=== PATIENT | male | born 1960 | race Caucasian/White ===

== ENCOUNTER 2017-11-15 23:57 | Inpatient (IN) | payer OTHER ==
[2017-11-16] MEDS: SOD CHLORIDE 0.9% 1,000 ML IV (00:40)
[2017-11-16] MEDS: METOCLOPRAMIDE 10 MG INJ IV (00:40)
[2017-11-16] MEDS: ASPIRIN 325 MG TAB PO (00:40)
[2017-11-16 00:57] LABS: ADD MAN DIFF? NO
[2017-11-16 01:05] LABS: BASOPHIL # 0.1 10^3/ul (0.0-0.1); BASOPHILS % 0.7 % (0.0-2.0); EOSINOPHILS # 0.7 10^3/ul (0.0-0.5); EOSINOPHILS % 7.8 % (0.0-7.0); HEMATOCRIT 19.5 % (42.0-52.0); LYMPHOCYTES % 23.5 % (15.0-51.0); MEAN CORPUSCULAR HEMOGLOBIN 40.7 pg (29.0-33.0); MEAN CORPUSCULAR HGB CONC 35.9 g/dl (32.0-37.0); MEAN CORPUSCULAR VOLUME 113.4 fl (82.0-101.0); MEAN PLATELET VOLUME 10.4 fl (7.4-10.4); MONOCYTES % 12.2 % (0.0-11.0); NEUTROPHIL # 4.7 10^3/ul (1.6-7.5); NEUTROPHILS % 55.4 % (39.0-77.0); PLATELET COUNT 228 10^3/UL (140-415); RED BLOOD COUNT 1.72 10^6/ul (4.70-6.10); RED CELL DISTRIBUTION WIDTH 15.8 % (11.5-14.5)
[2017-11-16 01:05] LABS: WHITE BLOOD COUNT 8.4 10^3/ul (4.8-10.8)
[2017-11-16 01:23] LABS: LACTIC ACID 1.3 mmol/L (0.5-2.0)
[2017-11-16 01:25] LABS: ALANINE AMINOTRANSFERASE 43 IU/L (13-69); ALKALINE PHOSPHATASE 87 IU/L (42-121); ANION GAP 16 (8-16); ASPARTATE AMINO TRANSFERASE 23 IU/L (15-46); BILIRUBIN,INDIRECT 0.3 mg/dl (0-1.1); BILIRUBIN,TOTAL 0.3 mg/dl (0.2-1.3); BLOOD UREA NITROGEN 13 mg/dl (7-20); CALCIUM 9.4 mg/dl (8.4-10.2); CARBON DIOXIDE 26 mmol/L (21-31); CHLORIDE 102 mmol/L (97-110); CREATININE 0.76 mg/dl (0.61-1.24); GLUCOSE 128 mg/dl (70-220); POTASSIUM 3.8 mmol/L (3.5-5.1); SODIUM 140 mmol/L (135-144); TOTAL PROTEIN 6.4 g/dl (6.1-8.1)
[2017-11-16 01:35] LABS: B-TYPE NATRIURETIC PEPTIDE 66 PG/ML (0-125)
[2017-11-16 01:38] LABS: TROPONIN-I < 0.012 ng/ml (0.00-0.12)
[2017-11-16 03:47] LABS: IRON 221 ug/dl (35-150)
[2017-11-16 03:56] LABS: LACTIC ACID 0.9 mmol/L (0.5-2.0)
[2017-11-16 03:57] LABS: % IRON SATURATION 92 % SAT (22-52); TOTAL IRON BINDING CAPACITY 241 ug/dl (241-421)
[2017-11-16 04:00] LABS: RETICULOCYTE COUNT # 0.006 X10^6 (0.020-0.110); RETICULOCYTE COUNT % 0.4 % (0.5-1.5)
[2017-11-16 04:00] LABS: RETICULOCYTE RBC 1.69
[2017-11-16] MEDS: HYDROCODONE/APAP (5/325) TAB PO (05:30)
[2017-11-16 05:32] LABS: IMMEDIATE SPIN CROSSMATCH 1 2
[2017-11-16] MEDS: PANTOPRAZOLE (EC) 40 MG TAB PO ×4 (06:46→06:51)
[2017-11-16 08:08] LABS: CREATINE KINASE 57 IU/L (23-200)
[2017-11-16 08:21] LABS: CK INDEX 0.9
[2017-11-16 08:36] LABS: CK-MB 0.51 ng/ml (0.0-2.4); TROPONIN-I < 0.012 ng/ml (0.00-0.12)
[2017-11-16 13:24] LABS: HEMATOCRIT 25.5 % (42.0-52.0)
[2017-11-16 13:47] LABS: CREATINE KINASE 55 IU/L (23-200)
[2017-11-16 13:57] LABS: CK INDEX 0.6
[2017-11-16 14:03] LABS: CK-MB 0.33 ng/ml (0.0-2.4); TROPONIN-I < 0.012 ng/ml (0.00-0.12)
[2017-11-16] MEDS ORDERED: PHENOL 1.4% SOLN 180 ML BTL MT (19:00)
[2017-11-16] MEDS: GUAIFENESIN/DM 5ML CUP PO (20:36)
[2017-11-17 00:23] LABS: OCCULT BLOOD STOOL NEGATIVE (NEGATIVE)
[2017-11-17] MEDS: GUAIFENESIN/DM 5ML CUP PO ×3 (00:42→17:08)
[2017-11-17] MEDS: PANTOPRAZOLE (EC) 40 MG TAB PO (06:09)
[2017-11-17 07:33] LABS: ADD MAN DIFF? NO
[2017-11-17 07:36] LABS: WHITE BLOOD COUNT 7.2 10^3/ul (4.8-10.8)
[2017-11-17 07:36] LABS: BASOPHIL # 0.1 10^3/ul (0.0-0.1); BASOPHILS % 0.8 % (0.0-2.0); EOSINOPHILS # 0.4 10^3/ul (0.0-0.5); EOSINOPHILS % 5.8 % (0.0-7.0); HEMATOCRIT 24.1 % (42.0-52.0); HEMOGLOBIN 8.5 g/dl (14.0-18.0); LYMPHOCYTES # 1.6 10^3/ul (0.8-2.9); LYMPHOCYTES % 21.4 % (15.0-51.0); MEAN CORPUSCULAR HEMOGLOBIN 37.4 pg (29.0-33.0); MEAN CORPUSCULAR HGB CONC 35.3 g/dl (32.0-37.0); MEAN CORPUSCULAR VOLUME 106.2 fl (82.0-101.0); MEAN PLATELET VOLUME 10.6 fl (7.4-10.4); MONOCYTE # 0.9 10^3/ul (0.3-0.9); MONOCYTES % 12.4 % (0.0-11.0); NEUTROPHIL # 4.3 10^3/ul (1.6-7.5); NEUTROPHILS % 59.2 % (39.0-77.0); PLATELET COUNT 206 10^3/UL (140-415); RED BLOOD COUNT 2.27 10^6/ul (4.70-6.10); RED CELL DISTRIBUTION WIDTH 20.3 % (11.5-14.5)
[2017-11-17 08:00] LABS: ALANINE AMINOTRANSFERASE 32 IU/L (13-69); ALBUMIN 3.6 g/dl (3.3-4.9); ALBUMIN/GLOBULIN RATIO 1.56; ALKALINE PHOSPHATASE 69 IU/L (42-121); ANION GAP 15 (8-16); ASPARTATE AMINO TRANSFERASE 17 IU/L (15-46); BILIRUBIN,INDIRECT 0.5 mg/dl (0-1.1); BILIRUBIN,TOTAL 0.5 mg/dl (0.2-1.3); BLOOD UREA NITROGEN 12 mg/dl (7-20); CALCIUM 9.1 mg/dl (8.4-10.2); CARBON DIOXIDE 25 mmol/L (21-31); CHLORIDE 107 mmol/L (97-110); CREATININE 0.66 mg/dl (0.61-1.24); GLUCOSE 103 mg/dl (70-220); SODIUM 143 mmol/L (135-144); TOTAL PROTEIN 5.9 g/dl (6.1-8.1)
[2017-11-18] MEDS: PANTOPRAZOLE (EC) 40 MG TAB PO (05:14)
[2017-11-18 07:59] LABS: ADD MAN DIFF? NO
[2017-11-18 08:02] LABS: BASOPHILS % 0.5 % (0.0-2.0); EOSINOPHILS # 0.5 10^3/ul (0.0-0.5); EOSINOPHILS % 6.3 % (0.0-7.0); HEMOGLOBIN 8.7 g/dl (14.0-18.0); LYMPHOCYTES # 1.8 10^3/ul (0.8-2.9); LYMPHOCYTES % 22.6 % (15.0-51.0); MEAN CORPUSCULAR HEMOGLOBIN 36.9 pg (29.0-33.0); MEAN CORPUSCULAR HGB CONC 34.8 g/dl (32.0-37.0); MEAN CORPUSCULAR VOLUME 105.9 fl (82.0-101.0); MEAN PLATELET VOLUME 10.4 fl (7.4-10.4); MONOCYTES % 12.4 % (0.0-11.0); NEUTROPHIL # 4.6 10^3/ul (1.6-7.5); NEUTROPHILS % 57.8 % (39.0-77.0); PLATELET COUNT 211 10^3/UL (140-415); RED BLOOD COUNT 2.36 10^6/ul (4.70-6.10); RED CELL DISTRIBUTION WIDTH 19.7 % (11.5-14.5)
[2017-11-18 09:45] LABS: INR 1.09; PARTIAL THROMBOPLASTIN TIME 38.5 Sec (25.0-35.0); PROTIME 14.2 Sec (11.9-14.9); PT RATIO 1.1
[2017-11-18] MEDS: LIDOCAINE 1% (MDV) 10 ML INJ (13:25)
[2017-11-18] MEDS: MIDAZOLAM 1 MG/ML 2 ML INJ (13:27)
[2017-11-18] MEDS: FENTAnyl 50 MCG/ML VIAL (13:30)
[2017-11-18] MEDS: SOD CHLORIDE 0.9% 500 ML (13:30)
[2017-11-18 16:37] LABS: TRANSFERRIN 142 mg/dL (188-341)
[2017-11-18] MEDS: ALBUTEROL/IPRATROPIUM (NEB) 3 ML AMP HHN ×2 (17:15→22:23)
[2017-11-18] MEDS: DEXTROSE 5%-0.45% NACL 1,000 ML IV ×2 (22:19)
[2017-11-19] MEDS: PANTOPRAZOLE (EC) 40 MG TAB PO (05:58)
[2017-11-19 06:11] LABS: ADD MAN DIFF? NO
[2017-11-19 06:15] LABS: BASOPHILS % 0.5 % (0.0-2.0); EOSINOPHILS # 0.5 10^3/ul (0.0-0.5); EOSINOPHILS % 5.9 % (0.0-7.0); HEMATOCRIT 23.5 % (42.0-52.0); HEMOGLOBIN 8.4 g/dl (14.0-18.0); LYMPHOCYTES # 1.9 10^3/ul (0.8-2.9); LYMPHOCYTES % 24.3 % (15.0-51.0); MEAN CORPUSCULAR HEMOGLOBIN 38.2 pg (29.0-33.0); MEAN CORPUSCULAR HGB CONC 35.7 g/dl (32.0-37.0); MEAN CORPUSCULAR VOLUME 106.8 fl (82.0-101.0); MEAN PLATELET VOLUME 10.5 fl (7.4-10.4); MONOCYTE # 1.1 10^3/ul (0.3-0.9); MONOCYTES % 13.7 % (0.0-11.0); NEUTROPHIL # 4.2 10^3/ul (1.6-7.5); NEUTROPHILS % 55.2 % (39.0-77.0); PLATELET COUNT 211 10^3/UL (140-415); RED CELL DISTRIBUTION WIDTH 18.9 % (11.5-14.5)
[2017-11-19 06:15] LABS: WHITE BLOOD COUNT 7.7 10^3/ul (4.8-10.8)
[2017-11-19 07:12] LABS: THYROID STIMULATING HORMONE 0.786 MIU/L (0.465-4.680)
[2017-11-19 07:46] LABS: FOLATE 13.9 ng/ml (2.8-20.0)
[2017-11-20] MEDS: PANTOPRAZOLE (EC) 40 MG TAB PO (05:27)
[2017-11-20 06:16] LABS: ADD MAN DIFF? NO
[2017-11-20 06:29] LABS: WHITE BLOOD COUNT 8.9 10^3/ul (4.8-10.8)
[2017-11-20 06:29] LABS: BASOPHIL # 0.1 10^3/ul (0.0-0.1); BASOPHILS % 0.7 % (0.0-2.0); EOSINOPHILS # 0.7 10^3/ul (0.0-0.5); EOSINOPHILS % 7.3 % (0.0-7.0); HEMOGLOBIN 8.3 g/dl (14.0-18.0); LYMPHOCYTES # 1.8 10^3/ul (0.8-2.9); LYMPHOCYTES % 20.5 % (15.0-51.0); MEAN CORPUSCULAR HEMOGLOBIN 36.6 pg (29.0-33.0); MEAN CORPUSCULAR HGB CONC 34.6 g/dl (32.0-37.0); MEAN CORPUSCULAR VOLUME 105.7 fl (82.0-101.0); MEAN PLATELET VOLUME 10.3 fl (7.4-10.4); MONOCYTE # 1.1 10^3/ul (0.3-0.9); MONOCYTES % 12.3 % (0.0-11.0); NEUTROPHIL # 5.2 10^3/ul (1.6-7.5); PLATELET COUNT 221 10^3/UL (140-415); RED BLOOD COUNT 2.27 10^6/ul (4.70-6.10); RED CELL DISTRIBUTION WIDTH 18.6 % (11.5-14.5)
[2017-11-20 06:56] LABS: INR 1.09; PROTIME 14.2 Sec (11.9-14.9); PT RATIO 1.1
[2017-11-20 06:57] LABS: PARTIAL THROMBOPLASTIN TIME 37.9 Sec (25.0-35.0)
[2017-11-20 07:18] LABS: ANION GAP 15 (8-16); BLOOD UREA NITROGEN 14 mg/dl (7-20); CALCIUM 9.2 mg/dl (8.4-10.2); CARBON DIOXIDE 28 mmol/L (21-31); CHLORIDE 104 mmol/L (97-110); CREATININE 0.72 mg/dl (0.61-1.24); GLUCOSE 105 mg/dl (70-220); POTASSIUM 4.5 mmol/L (3.5-5.1); SODIUM 142 mmol/L (135-144)
[2017-11-20] MEDS: MIDAZOLAM 1 MG/ML 2 ML INJ (08:54)
[2017-11-20] MEDS: LIDOCAINE 2% (SDV) 5 ML INJ (08:54)
[2017-11-20] MEDS: PROPOFOL 20 ML (08:54)
[2017-11-20] MEDS: predniSONE 20 MG TAB PO (11:23)
[2017-11-20 12:16] LABS: HAPTOGLOBIN 199 mg/dL (43-212); HAPTOGLOBIN 242 mg/dL (43-212)
[2017-11-20] MEDS: NYSTATIN SUSP 5 ML CUP PO ×3 (13:36→20:34)
[2017-11-21] MEDS: PANTOPRAZOLE (EC) 40 MG TAB PO (06:00)
[2017-11-21 07:32] LABS: HEMATOCRIT 22.9 % (42.0-52.0); HEMOGLOBIN 7.9 g/dl (14.0-18.0)
[2017-11-21] MEDS: NYSTATIN SUSP 5 ML CUP PO ×4 (08:46→20:46)
[2017-11-21] MEDS: predniSONE 20 MG TAB PO (08:46)
[2017-11-21] MEDS: GUAIFENESIN/DM 5ML CUP PO ×2 (16:20→20:48)
[2017-11-21] MEDS: FOLIC ACID 1 MG TAB PO (16:21)
[2017-11-21] MEDS: CYANOCOBALAMIN 1000 MCG INJ IM (16:23)
[2017-11-22] MEDS: PANTOPRAZOLE (EC) 40 MG TAB PO (05:46)
[2017-11-22 06:19] LABS: ADD MAN DIFF? NO
[2017-11-22 06:34] LABS: BASOPHILS % 0.3 % (0.0-2.0); EOSINOPHILS # 0.1 10^3/ul (0.0-0.5); EOSINOPHILS % 0.8 % (0.0-7.0); HEMATOCRIT 21.7 % (42.0-52.0); HEMOGLOBIN 7.5 g/dl (14.0-18.0); LYMPHOCYTES # 1.7 10^3/ul (0.8-2.9); LYMPHOCYTES % 18.6 % (15.0-51.0); MEAN CORPUSCULAR HEMOGLOBIN 36.6 pg (29.0-33.0); MEAN CORPUSCULAR HGB CONC 34.6 g/dl (32.0-37.0); MEAN CORPUSCULAR VOLUME 105.9 fl (82.0-101.0); MEAN PLATELET VOLUME 10.8 fl (7.4-10.4); MONOCYTES % 10.8 % (0.0-11.0); NEUTROPHIL # 6.3 10^3/ul (1.6-7.5); PLATELET COUNT 230 10^3/UL (140-415); RED BLOOD COUNT 2.05 10^6/ul (4.70-6.10); RED CELL DISTRIBUTION WIDTH 18.4 % (11.5-14.5)
[2017-11-22 06:34] LABS: WHITE BLOOD COUNT 9.2 10^3/ul (4.8-10.8)
[2017-11-22] MEDS: GUAIFENESIN/DM 5ML CUP PO ×4 (08:53→21:02)
[2017-11-22] MEDS: FOLIC ACID 1 MG TAB PO (08:53)
[2017-11-22] MEDS: NYSTATIN SUSP 5 ML CUP PO ×4 (08:54→21:02)
[2017-11-22] MEDS: predniSONE 20 MG TAB PO (08:54)
[2017-11-22] MEDS: ACETAMINOPHEN 325 MG TAB PO (21:02)
[2017-11-22] MEDS: DIPHENHYDRAMINE 50 MG INJ IV (21:03)
[2017-11-22 21:27] LABS: IMMEDIATE SPIN CROSSMATCH 1 1
[2017-11-23] MEDS: PANTOPRAZOLE (EC) 40 MG TAB PO (05:58)
[2017-11-23 06:25] LABS: ADD MAN DIFF? NO
[2017-11-23 06:33] LABS: BASOPHILS % 0.2 % (0.0-2.0); EOSINOPHILS # 0.1 10^3/ul (0.0-0.5); EOSINOPHILS % 0.7 % (0.0-7.0); HEMATOCRIT 23.9 % (42.0-52.0); HEMOGLOBIN 8.3 g/dl (14.0-18.0); LYMPHOCYTES # 1.6 10^3/ul (0.8-2.9); LYMPHOCYTES % 19.2 % (15.0-51.0); MEAN CORPUSCULAR HEMOGLOBIN 35.8 pg (29.0-33.0); MEAN CORPUSCULAR HGB CONC 34.7 g/dl (32.0-37.0); MEAN PLATELET VOLUME 10.6 fl (7.4-10.4); MONOCYTES % 12.2 % (0.0-11.0); NEUTROPHIL # 5.5 10^3/ul (1.6-7.5); NEUTROPHILS % 67.3 % (39.0-77.0); PLATELET COUNT 237 10^3/UL (140-415); RED BLOOD COUNT 2.32 10^6/ul (4.70-6.10); RED CELL DISTRIBUTION WIDTH 19.6 % (11.5-14.5)
[2017-11-23 06:33] LABS: WHITE BLOOD COUNT 8.1 10^3/ul (4.8-10.8)
[2017-11-23] MEDS: FOLIC ACID 1 MG TAB PO (09:37)
[2017-11-23] MEDS: predniSONE 20 MG TAB PO (09:37)
[2017-11-23] MEDS: NYSTATIN SUSP 5 ML CUP PO ×4 (09:38→20:59)
[2017-11-23] MEDS: GUAIFENESIN/DM 5ML CUP PO ×3 (09:43→23:14)
[2017-11-23] MEDS: ACETAMINOPHEN 325 MG TAB PO (18:17)
[2017-11-24 05:43] LABS: ADD MAN DIFF? NO
[2017-11-24 05:46] LABS: WHITE BLOOD COUNT 8.3 10^3/ul (4.8-10.8)
[2017-11-24 05:46] LABS: BASOPHILS % 0.2 % (0.0-2.0); EOSINOPHILS % 0.5 % (0.0-7.0); HEMATOCRIT 24.1 % (42.0-52.0); HEMOGLOBIN 8.4 g/dl (14.0-18.0); LYMPHOCYTES # 1.5 10^3/ul (0.8-2.9); LYMPHOCYTES % 18.3 % (15.0-51.0); MEAN CORPUSCULAR HEMOGLOBIN 35.4 pg (29.0-33.0); MEAN CORPUSCULAR HGB CONC 34.9 g/dl (32.0-37.0); MEAN CORPUSCULAR VOLUME 101.7 fl (82.0-101.0); MEAN PLATELET VOLUME 10.5 fl (7.4-10.4); MONOCYTES % 12.2 % (0.0-11.0); NEUTROPHIL # 5.6 10^3/ul (1.6-7.5); NEUTROPHILS % 68.3 % (39.0-77.0); PLATELET COUNT 234 10^3/UL (140-415); RED BLOOD COUNT 2.37 10^6/ul (4.70-6.10); RED CELL DISTRIBUTION WIDTH 18.6 % (11.5-14.5)
[2017-11-24] MEDS: PANTOPRAZOLE (EC) 40 MG TAB PO (06:23)
[2017-11-24] MEDS: FOLIC ACID 1 MG TAB PO (08:14)
[2017-11-24] MEDS: predniSONE 20 MG TAB PO (08:14)
[2017-11-24] MEDS: NYSTATIN SUSP 5 ML CUP PO ×4 (08:15→20:11)
[2017-11-24] MEDS: GUAIFENESIN/DM 5ML CUP PO ×3 (13:39→22:20)
[2017-11-24 15:30] LABS: RETICULOCYTE COUNT # 0.005 X10^6 (0.020-0.110); RETICULOCYTE COUNT % 0.2 % (0.5-1.5)
[2017-11-24 15:30] LABS: RETICULOCYTE RBC 2.35
[2017-11-24] MEDS: ACETAMINOPHEN 325 MG TAB PO (21:24)
[2017-11-25 05:51] LABS: ADD MAN DIFF? NO
[2017-11-25 05:56] LABS: WHITE BLOOD COUNT 8.3 10^3/ul (4.8-10.8)
[2017-11-25 05:56] LABS: BASOPHILS % 0.2 % (0.0-2.0); EOSINOPHILS # 0.1 10^3/ul (0.0-0.5); EOSINOPHILS % 0.8 % (0.0-7.0); HEMATOCRIT 22.6 % (42.0-52.0); LYMPHOCYTES # 1.5 10^3/ul (0.8-2.9); LYMPHOCYTES % 17.7 % (15.0-51.0); MEAN CORPUSCULAR HEMOGLOBIN 35.9 pg (29.0-33.0); MEAN CORPUSCULAR HGB CONC 35.4 g/dl (32.0-37.0); MEAN CORPUSCULAR VOLUME 101.3 fl (82.0-101.0); MEAN PLATELET VOLUME 10.8 fl (7.4-10.4); MONOCYTE # 0.9 10^3/ul (0.3-0.9); MONOCYTES % 11.1 % (0.0-11.0); NEUTROPHIL # 5.8 10^3/ul (1.6-7.5); NEUTROPHILS % 69.7 % (39.0-77.0); PLATELET COUNT 212 10^3/UL (140-415); RED BLOOD COUNT 2.23 10^6/ul (4.70-6.10); RED CELL DISTRIBUTION WIDTH 18.5 % (11.5-14.5)
[2017-11-25] MEDS: PANTOPRAZOLE (EC) 40 MG TAB PO (06:10)
[2017-11-25] MEDS: NYSTATIN SUSP 5 ML CUP PO ×2 (08:01→12:04)
[2017-11-25] MEDS: FOLIC ACID 1 MG TAB PO (08:01)
[2017-11-25] MEDS: predniSONE 20 MG TAB PO (08:01)
[2017-11-25] MEDS: GUAIFENESIN/DM 5ML CUP PO (09:07)
== END 2017-11-25 15:45 | disposition home or self-care (01) | DRG 812 ==
LOC: E/R 23:57 → MS2 11-21 17:55 → MS4 11-16 03:35
PROVIDERS: Internal Medicine Nephrology
PROC: 0DB68ZX Excision of Stomach, Via Natural or Artificial Opening Endoscopic, Diagnostic (ICD-10-PCS; principal; 2017-11-20 08:15)
PROC: 30233N1 Transfusion of Nonautologous Red Blood Cells into Peripheral Vein, Percutaneous Approach (ICD-10-PCS; 2017-11-20 08:15)
PROC: 07DR3ZX Extraction of Iliac Bone Marrow, Percutaneous Approach, Diagnostic (ICD-10-PCS; 2017-11-20 08:15)
DX: D62 Acute posthemorrhagic anemia (principal); B37.81 Candidal esophagitis; D53.9 Nutritional anemia, unspecified; D61.01 Constitutional (pure) red blood cell aplasia; K22.2 Esophageal obstruction; K29.70 Gastritis, unspecified, without bleeding; K29.80 Duodenitis without bleeding; Z87.891 Personal history of nicotine dependence; R07.9 Chest pain, unspecified; R51 Headache
CPT/HCPCS: 36415; 36430; 71045; 71250; 74176; 77012; 80048; 80053; 80076; 82270; 82550; 82553; 82607; 82728; 82746; 82962; 83010; 83540; 83605; 83880; 84443; 84466; 84484; 85014; 85018; 85025; 85045; 85610; 85730; 86644; 86850; 86880; 86900; 86901; 86920; 87040; 88305; 88313; 93005; 94640; 94664; 96374; 99285-25

== ENCOUNTER 2017-12-10 09:00 | Inpatient (IN) | payer OTHER ==
[2017-12-10 09:23] LABS: ADD MAN DIFF? NO
[2017-12-10] MEDS: SOD CHLORIDE 0.9% 1,000 ML IV ×2 (09:29→18:24)
[2017-12-10 09:33] LABS: ABNORMAL IP MESSAGE 1; BASOPHILS % 0.2 % (0.0-2.0); EOSINOPHILS % 0.2 % (0.0-7.0); HEMATOCRIT 20.1 % (42.0-52.0); LYMPHOCYTES # 0.5 10^3/ul (0.8-2.9); LYMPHOCYTES % 7.8 % (15.0-51.0); MEAN CORPUSCULAR HEMOGLOBIN 34.3 pg (29.0-33.0); MEAN CORPUSCULAR HGB CONC 33.8 g/dl (32.0-37.0); MEAN CORPUSCULAR VOLUME 101.5 fl (82.0-101.0); MEAN PLATELET VOLUME 10.5 fl (7.4-10.4); MONOCYTE # 0.5 10^3/ul (0.3-0.9); MONOCYTES % 7.2 % (0.0-11.0); NEUTROPHIL # 5.4 10^3/ul (1.6-7.5); NEUTROPHILS % 84.1 % (39.0-77.0); PLATELET COUNT 156 10^3/UL (140-415); RED BLOOD COUNT 1.98 10^6/ul (4.70-6.10)
[2017-12-10 09:33] LABS: WHITE BLOOD COUNT 6.4 10^3/ul (4.8-10.8)
[2017-12-10 09:45] LABS: HEMOGLOBIN 6.8 g/dl (14.0-18.0)
[2017-12-10 09:50] LABS: ALANINE AMINOTRANSFERASE 24 IU/L (13-69); ALBUMIN 3.6 g/dl (3.3-4.9); ALKALINE PHOSPHATASE 64 IU/L (42-121); ANION GAP 14 (8-16); ASPARTATE AMINO TRANSFERASE 14 IU/L (15-46); BILIRUBIN,INDIRECT 0.8 mg/dl (0-1.1); BILIRUBIN,TOTAL 0.8 mg/dl (0.2-1.3); BLOOD UREA NITROGEN 19 mg/dl (7-20); CALCIUM 8.7 mg/dl (8.4-10.2); CARBON DIOXIDE 25 mmol/L (21-31); CHLORIDE 102 mmol/L (97-110); CREATININE 0.72 mg/dl (0.61-1.24); GLUCOSE 98 mg/dl (70-220); POTASSIUM 4.2 mmol/L (3.5-5.1); SODIUM 137 mmol/L (135-144)
[2017-12-10 10:01] LABS: TROPONIN-I < 0.012 ng/ml (0.00-0.12)
[2017-12-10 10:05] LABS: INR 1.09; PROTIME 14.3 Sec (11.9-14.9); PT RATIO 1.1
[2017-12-10 10:06] LABS: PARTIAL THROMBOPLASTIN TIME 33.9 Sec (25.0-35.0)
[2017-12-10] MEDS: ONDANSETRON 4 MG INJ IV (10:32)
[2017-12-10] MEDS: HYDROmorphONE 1 MG/5 ML IV SYRINGE IV (10:33)
[2017-12-10] MEDS ORDERED: ONDANSETRON 4 MG INJ IV ×2 (11:00→16:00)
[2017-12-10 12:41] LABS: IMMEDIATE SPIN CROSSMATCH 1 2
[2017-12-10] MEDS: ACETAMINOPHEN 325 MG TAB PO (15:17)
[2017-12-10] MEDS ORDERED: DOCUSATE SODIUM 100 MG CAP PO (16:00)
[2017-12-10] MEDS ORDERED: ZOLPIDEM 5 MG TAB PO (16:00)
[2017-12-10] MEDS ORDERED: NACL 0.9% 3 ML SYG IV (16:00)
[2017-12-10] MEDS ORDERED: HYDROCODONE/APAP (5/325) TAB PO (16:00)
[2017-12-10] MEDS ORDERED: morphine LIQ (10 MG/5 ML) CUP PO (16:00)
[2017-12-10] MEDS ORDERED: ACETAMINOPHEN 325 MG TAB PO (16:00)
[2017-12-10] MEDS: CEFTRIAXONE 1 GM/50 ML (PMX) 50 ML IVPB (18:24)
[2017-12-10] MEDS: predniSONE 20 MG TAB PO (18:25)
[2017-12-10 19:12] LABS: HEMATOCRIT 23.3 % (42.0-52.0); HEMOGLOBIN 7.9 g/dl (14.0-18.0)
[2017-12-10] MEDS: CALCIUM/VITAMIN D (500/200) TAB PO (21:24)
[2017-12-10] MEDS: CYCLOSPORINE MICROEMULS 100 MG CAP PO (21:24)
[2017-12-11 03:12] LABS: ADD UMIC YES; UR ASCORBIC ACID NEGATIVE (NEGATIVE); UR BACTERIA FEW /HPF (NONE SEEN); UR BILIRUBIN (Dip) NEGATIVE (NEGATIVE); UR BLOOD (Dip) 1+ mg/dL (NEGATIVE); UR CLARITY CLEAR (CLEAR); UR COLOR YELLOW (YELLOW); UR GLUCOSE (Dip) NEGATIVE (NEGATIVE); UR KETONES (Dip) NEGATIVE (NEGATIVE); UR LEUKOCYTE ESTERASE (Dip) NEGATIVE Leu/ul (NEGATIVE); UR NITRITE (Dip) NEGATIVE (NEGATIVE); UR RBC 0 /HPF (0-5); UR SPECIFIC GRAVITY (Dip) 1.012 (1.003-1.030); UR TOTAL PROTEIN (Dip) NEGATIVE (NEGATIVE); UR UROBILINOGEN (Dip) NEGATIVE (NEGATIVE); UR WBC 1 /HPF (0-5)
[2017-12-11] MEDS: PANTOPRAZOLE 40 MG INJ IV (05:33)
[2017-12-11 07:43] LABS: ADD MAN DIFF? NO
[2017-12-11 07:47] LABS: BASOPHILS % 0.2 % (0.0-2.0); EOSINOPHILS % 0.2 % (0.0-7.0); HEMATOCRIT 24.9 % (42.0-52.0); HEMOGLOBIN 8.6 g/dl (14.0-18.0); LYMPHOCYTES # 0.7 10^3/ul (0.8-2.9); LYMPHOCYTES % 12.5 % (15.0-51.0); MEAN CORPUSCULAR HEMOGLOBIN 33.2 pg (29.0-33.0); MEAN CORPUSCULAR HGB CONC 34.5 g/dl (32.0-37.0); MEAN CORPUSCULAR VOLUME 96.1 fl (82.0-101.0); MEAN PLATELET VOLUME 11.3 fl (7.4-10.4); MONOCYTE # 0.3 10^3/ul (0.3-0.9); MONOCYTES % 6.2 % (0.0-11.0); NEUTROPHIL # 4.2 10^3/ul (1.6-7.5); NEUTROPHILS % 80.5 % (39.0-77.0); PLATELET COUNT 138 10^3/UL (140-415); RED BLOOD COUNT 2.59 10^6/ul (4.70-6.10); RED CELL DISTRIBUTION WIDTH 19.4 % (11.5-14.5)
[2017-12-11 07:47] LABS: WHITE BLOOD COUNT 5.2 10^3/ul (4.8-10.8)
[2017-12-11 08:25] LABS: ANION GAP 14 (8-16); BLOOD UREA NITROGEN 15 mg/dl (7-20); CARBON DIOXIDE 25 mmol/L (21-31); CHLORIDE 104 mmol/L (97-110); CREATININE 0.65 mg/dl (0.61-1.24); GLUCOSE 122 mg/dl (70-220); PHOSPHORUS 4.2 mg/dl (2.5-4.9); POTASSIUM 4.8 mmol/L (3.5-5.1); SODIUM 138 mmol/L (135-144)
[2017-12-11] MEDS: CYCLOSPORINE MICROEMULS 100 MG CAP PO (09:10)
[2017-12-11] MEDS: CALCIUM/VITAMIN D (500/200) TAB PO (09:11)
[2017-12-11] MEDS: FOLIC ACID 1 MG TAB PO (09:13)
[2017-12-11] MEDS: SOD CHLORIDE 0.9% 1,000 ML IV (15:19)
[2017-12-11] MEDS: CEFTRIAXONE 1 GM/50 ML (PMX) 50 ML IVPB (15:22)
[2017-12-11 16:36] LABS: OCCULT BLOOD STOOL NEGATIVE (NEGATIVE)
== END 2017-12-11 18:53 | disposition home or self-care (01) | DRG 810 ==
LOC: MS4 15:26 → E/R 09:00 → MS4 10:41
PROVIDERS: Pediatrics
PROC: 30233N1 Transfusion of Nonautologous Red Blood Cells into Peripheral Vein, Percutaneous Approach (ICD-10-PCS; principal; 2017-12-10)
DX: D61.01 Constitutional (pure) red blood cell aplasia (principal); D62 Acute posthemorrhagic anemia; K29.50 Unspecified chronic gastritis without bleeding; N40.0 Benign prostatic hyperplasia without lower urinary tract symptoms; Z86.718 Personal history of other venous thrombosis and embolism
CPT/HCPCS: 36415; 36430; 71045; 80048; 80053; 81001; 82270; 83735; 84100; 84484; 85014; 85018; 85025; 85610; 85730; 86850; 86900; 86901; 86920; 87040; 93005; 96374; 96375; 99285-25

== ENCOUNTER 2017-12-27 00:16 | Observation (INO) | payer OTHER ==
[2017-12-27 01:14] LABS: WHITE BLOOD COUNT 6.6 10^3/ul (4.8-10.8)
[2017-12-27 01:14] LABS: ABNORMAL IP MESSAGE 1; HEMATOCRIT 18.3 % (42.0-52.0); MEAN CORPUSCULAR HEMOGLOBIN 32.1 pg (29.0-33.0); MEAN CORPUSCULAR HGB CONC 33.9 g/dl (32.0-37.0); MEAN CORPUSCULAR VOLUME 94.8 fl (82.0-101.0); MEAN PLATELET VOLUME 11.1 fl (7.4-10.4); PLATELET COUNT 171 10^3/UL (140-415); POSITIVE DIFF @See below; RED BLOOD COUNT 1.93 10^6/ul (4.70-6.10); RED CELL DISTRIBUTION WIDTH 17.1 % (11.5-14.5)
[2017-12-27 01:27] LABS: ADD MAN DIFF? YES; HEMOGLOBIN 6.2 g/dl (14.0-18.0)
[2017-12-27 01:32] LABS: ALANINE AMINOTRANSFERASE 24 IU/L (13-69); ALBUMIN 3.4 g/dl (3.3-4.9); ALBUMIN/GLOBULIN RATIO 1.41; ALKALINE PHOSPHATASE 62 IU/L (42-121); ANION GAP 12 (8-16); ASPARTATE AMINO TRANSFERASE 15 IU/L (15-46); BILIRUBIN,INDIRECT 0.5 mg/dl (0-1.1); BILIRUBIN,TOTAL 0.5 mg/dl (0.2-1.3); BLOOD UREA NITROGEN 18 mg/dl (7-20); CALCIUM 9.3 mg/dl (8.4-10.2); CARBON DIOXIDE 28 mmol/L (21-31); CHLORIDE 105 mmol/L (97-110); CREATININE 0.86 mg/dl (0.61-1.24); GLUCOSE 134 mg/dl (70-220); POTASSIUM 4.5 mmol/L (3.5-5.1); SODIUM 140 mmol/L (135-144); TOTAL PROTEIN 5.8 g/dl (6.1-8.1)
[2017-12-27 01:34] LABS: INR 1.08; PARTIAL THROMBOPLASTIN TIME 31.2 Sec (25.0-35.0); PROTIME 14.1 Sec (11.9-14.9); PT RATIO 1.1
[2017-12-27 01:47] LABS: TROPONIN-I < 0.012 ng/ml (0.000-0.120)
[2017-12-27 02:27] LABS: ANISOCYTOSIS 2+ (0-0); BAND NEUTROPHILS #M 0.7 10^3/ul (0.0-0.6); BAND NEUTROPHILS % (M) 11 % (0-4); HYPOCHROMASIA 1+ (0-0); LYMPHOCYTES #M 1.1 10^3/ul (0.8-2.9); LYMPHOCYTES % (M) 17 % (15-51); MICROCYTOSIS 2+ (0-0); MONOCYTE #M 0.5 10^3/ul (0.3-0.9); MONOCYTES % (M) 8 % (0-11); MYELOCYTES % (M) 1 % (0-0); PLATELET ESTIMATE NORMAL; POLYCHROMASIA 3+ (0-0); SEG NEUT #M 4.2 10^3/ul (1.6-7.5); SEGMENTED NEUTROPHILS (M) % 63 % (39-77)
[2017-12-27 03:08] LABS: IMMEDIATE SPIN CROSSMATCH 1 2
[2017-12-27] MEDS ORDERED: ONDANSETRON 4 MG INJ IV (06:00)
[2017-12-27] MEDS: SOD CHLORIDE 0.9% 1,000 ML IV (06:00)
[2017-12-27] MEDS: PANTOPRAZOLE 40 MG INJ IV (06:14)
[2017-12-27] MEDS: CYCLOSPORINE MICROEMULS 100 MG CAP PO ×2 (08:54→20:48)
[2017-12-27] MEDS: predniSONE 50 MG TAB PO (08:54)
[2017-12-27] MEDS: FOLIC ACID 1 MG TAB PO (08:56)
[2017-12-27] MEDS: ACETAMINOPHEN 325 MG TAB PO ×2 (11:17→23:04)
[2017-12-27] MEDS: DIPHENHYDRAMINE 50 MG INJ IV (11:18)
[2017-12-27 11:29] LABS: ABNORMAL IP MESSAGE 1; HEMATOCRIT 24.7 % (42.0-52.0); HEMOGLOBIN 8.4 g/dl (14.0-18.0); MEAN CORPUSCULAR HEMOGLOBIN 31.6 pg (29.0-33.0); MEAN CORPUSCULAR VOLUME 92.9 fl (82.0-101.0); MEAN PLATELET VOLUME 10.4 fl (7.4-10.4); PLATELET COUNT 168 10^3/UL (140-415); POSITIVE DIFF @See below; RED BLOOD COUNT 2.66 10^6/ul (4.70-6.10); RED CELL DISTRIBUTION WIDTH 16.3 % (11.5-14.5)
[2017-12-27 11:29] LABS: WHITE BLOOD COUNT 11.3 10^3/ul (4.8-10.8)
[2017-12-27 11:30] LABS: ADD MAN DIFF? YES
[2017-12-27 11:54] LABS: ANISOCYTOSIS 1+ (0-0); BAND NEUTROPHILS #M 1.9 10^3/ul (0.0-0.6); BAND NEUTROPHILS % (M) 17 % (0-4); LYMPHOCYTES #M 0.5 10^3/ul (0.8-2.9); LYMPHOCYTES % (M) 5 % (15-51); MICROCYTOSIS 1+ (0-0); MONOCYTE #M 0.4 10^3/ul (0.3-0.9); MONOCYTES % (M) 4 % (0-11); PLATELET ESTIMATE NORMAL; SEG NEUT #M 8.6 10^3/ul (1.6-7.5); SEGMENTED NEUTROPHILS (M) % 74 % (39-77); SMUDGE%M 6 % (0-0)
[2017-12-27 17:13] LABS: OCCULT BLOOD STOOL NEGATIVE (NEGATIVE)
[2017-12-27] MEDS: PANTOPRAZOLE (EC) 40 MG TAB PO (18:20)
[2017-12-28 06:12] LABS: WHITE BLOOD COUNT 5.9 10^3/ul (4.8-10.8)
[2017-12-28 06:12] LABS: ABNORMAL IP MESSAGE 1; HEMATOCRIT 25.1 % (42.0-52.0); HEMOGLOBIN 8.3 g/dl (14.0-18.0); MEAN CORPUSCULAR HEMOGLOBIN 30.7 pg (29.0-33.0); MEAN CORPUSCULAR HGB CONC 33.1 g/dl (32.0-37.0); MEAN PLATELET VOLUME 10.8 fl (7.4-10.4); PLATELET COUNT 171 10^3/UL (140-415); POSITIVE DIFF @See below; RED CELL DISTRIBUTION WIDTH 16.6 % (11.5-14.5)
[2017-12-28 06:45] LABS: BLOOD UREA NITROGEN 17 mg/dl (7-20); CALCIUM 9.6 mg/dl (8.4-10.2); CARBON DIOXIDE 33 mmol/L (21-31); CHLORIDE 106 mmol/L (97-110); CREATININE 0.86 mg/dl (0.61-1.24); GLUCOSE 93 mg/dl (70-220); POTASSIUM 4.7 mmol/L (3.5-5.1)
[2017-12-28 06:52] LABS: ADD MAN DIFF? YES
[2017-12-28] MEDS: PANTOPRAZOLE (EC) 40 MG TAB PO ×2 (06:56→17:12)
[2017-12-28 07:07] LABS: ANION GAP 12 (8-16); SODIUM 146 mmol/L (135-144)
[2017-12-28] MEDS: ACETAMINOPHEN 325 MG TAB PO (08:06)
[2017-12-28] MEDS: predniSONE 50 MG TAB PO (08:06)
[2017-12-28] MEDS: FOLIC ACID 1 MG TAB PO (08:07)
[2017-12-28] MEDS: CYCLOSPORINE MICROEMULS 100 MG CAP PO ×2 (08:07→21:25)
[2017-12-28 09:54] LABS: ANISOCYTOSIS 1+ (0-0); BAND NEUTROPHILS #M 0.2 10^3/ul (0.0-0.6); BAND NEUTROPHILS % (M) 5 % (0-4); GIANT THROMBO% (M) 1 % (0-0); LYMPHOCYTES % (M) 17 % (15-51); MONOCYTE #M 0.4 10^3/ul (0.3-0.9); MONOCYTES % (M) 7 % (0-11); PLATELET ESTIMATE NORMAL; SEG NEUT #M 4.2 10^3/ul (1.6-7.5); SEGMENTED NEUTROPHILS (M) % 71 % (39-77); SMUDGE%M 4 % (0-0); STOMATOCYTES 1+ (0-0)
[2017-12-28] MEDS: CLOTRIMAZOLE 1% 30 GM CR TOP (21:25)
[2017-12-29] MEDS: ACETAMINOPHEN 325 MG TAB PO ×2 (01:23→09:41)
[2017-12-29] MEDS: PANTOPRAZOLE (EC) 40 MG TAB PO (05:28)
[2017-12-29 06:05] LABS: ABNORMAL IP MESSAGE 1; MEAN CORPUSCULAR HEMOGLOBIN 31.1 pg (29.0-33.0); MEAN CORPUSCULAR HGB CONC 33.3 g/dl (32.0-37.0); MEAN CORPUSCULAR VOLUME 93.4 fl (82.0-101.0); MEAN PLATELET VOLUME 10.4 fl (7.4-10.4); PLATELET COUNT 163 10^3/UL (140-415); POSITIVE DIFF @See below; RED BLOOD COUNT 2.57 10^6/ul (4.70-6.10); RED CELL DISTRIBUTION WIDTH 16.2 % (11.5-14.5)
[2017-12-29 06:05] LABS: WHITE BLOOD COUNT 7.3 10^3/ul (4.8-10.8)
[2017-12-29 06:15] LABS: ADD MAN DIFF? YES
[2017-12-29 06:30] LABS: ALANINE AMINOTRANSFERASE 28 IU/L (13-69); ALBUMIN 3.1 g/dl (3.3-4.9); ALBUMIN/GLOBULIN RATIO 1.34; ALKALINE PHOSPHATASE 54 IU/L (42-121); ANION GAP 9 (8-16); ASPARTATE AMINO TRANSFERASE 18 IU/L (15-46); BILIRUBIN,INDIRECT 0.5 mg/dl (0-1.1); BILIRUBIN,TOTAL 0.5 mg/dl (0.2-1.3); BLOOD UREA NITROGEN 14 mg/dl (7-20); CALCIUM 9.3 mg/dl (8.4-10.2); CARBON DIOXIDE 31 mmol/L (21-31); CHLORIDE 107 mmol/L (97-110); CREATININE 0.81 mg/dl (0.61-1.24); GLUCOSE 98 mg/dl (70-220); POTASSIUM 4.4 mmol/L (3.5-5.1); SODIUM 143 mmol/L (135-144); TOTAL PROTEIN 5.4 g/dl (6.1-8.1)
[2017-12-29 07:40] LABS: ANISOCYTOSIS 1+ (0-0); BAND NEUTROPHILS #M 0.8 10^3/ul (0.0-0.6); BAND NEUTROPHILS % (M) 11 % (0-4); LYMPHOCYTES % (M) 14 % (15-51); MICROCYTOSIS 1+ (0-0); MONOCYTE #M 0.2 10^3/ul (0.3-0.9); MONOCYTES % (M) 3 % (0-11); MYELOCYTES % (M) 1 % (0-0); PLATELET ESTIMATE NORMAL; SEG NEUT #M 5.2 10^3/ul (1.6-7.5); SEGMENTED NEUTROPHILS (M) % 71 % (39-77); SMUDGE%M 1 % (0-0)
[2017-12-29] MEDS: predniSONE 50 MG TAB PO (08:22)
[2017-12-29] MEDS: FOLIC ACID 1 MG TAB PO (08:22)
[2017-12-29] MEDS: CYCLOSPORINE MICROEMULS 100 MG CAP PO (08:23)
[2017-12-29] MEDS: CLOTRIMAZOLE 1% 30 GM CR TOP (08:24)
[2017-12-31 16:27] LABS: CYCLOSPORIN 127 mcg/L
== END 2017-12-29 12:30 | disposition home or self-care (01) ==
LOC: MS2 04:06 → E/R 00:16 → MS2 02:48
DX: D61.01 Constitutional (pure) red blood cell aplasia (principal); K29.70 Gastritis, unspecified, without bleeding; E66.3 Overweight; Z68.30 Body mass index [BMI] 30.0-30.9, adult
CPT/HCPCS: 36415; 36430; 71045; 80048; 80053; 80158; 82270; 84484; 85025; 85610; 85730; 86850; 86900; 86901; 86920; 87400; 93005; 99285-25

== ENCOUNTER 2018-01-11 11:55 | Inpatient (IN) | payer OTHER ==
[2018-01-11 12:39] LABS: ABNORMAL IP MESSAGE 1; HEMATOCRIT 21.3 % (42.0-52.0); HEMOGLOBIN 7.1 g/dl (14.0-18.0); MEAN CORPUSCULAR HEMOGLOBIN 31.8 pg (29.0-33.0); MEAN CORPUSCULAR HGB CONC 33.3 g/dl (32.0-37.0); MEAN CORPUSCULAR VOLUME 95.5 fl (82.0-101.0); MEAN PLATELET VOLUME 10.7 fl (7.4-10.4); PLATELET COUNT 208 10^3/UL (140-415); POSITIVE DIFF @See below; RED BLOOD COUNT 2.23 10^6/ul (4.70-6.10); RED CELL DISTRIBUTION WIDTH 18.2 % (11.5-14.5)
[2018-01-11 12:42] LABS: ADD MAN DIFF? YES
[2018-01-11 12:56] LABS: IRON 40 ug/dl (35-150)
[2018-01-11 13:01] LABS: ALANINE AMINOTRANSFERASE 28 IU/L (13-69); ALBUMIN 3.2 g/dl (3.3-4.9); ALBUMIN/GLOBULIN RATIO 1.33; ALKALINE PHOSPHATASE 57 IU/L (42-121); ANION GAP 12 (8-16); ASPARTATE AMINO TRANSFERASE 24 IU/L (15-46); BILIRUBIN,INDIRECT 0.7 mg/dl (0-1.1); BILIRUBIN,TOTAL 0.7 mg/dl (0.2-1.3); BLOOD UREA NITROGEN 12 mg/dl (7-20); CALCIUM 8.9 mg/dl (8.4-10.2); CARBON DIOXIDE 25 mmol/L (21-31); CHLORIDE 102 mmol/L (97-110); GLUCOSE 128 mg/dl (70-220); LACTATE DEHYDROGENASE 1098 IU/L (313-618); POTASSIUM 4.2 mmol/L (3.5-5.1); SODIUM 135 mmol/L (135-144); TOTAL PROTEIN 5.6 g/dl (6.1-8.1)
[2018-01-11 13:06] LABS: % IRON SATURATION 19 % SAT (22-52); TOTAL IRON BINDING CAPACITY 212 ug/dl (241-421)
[2018-01-11 13:20] LABS: ANISOCYTOSIS 1+ (0-0); BAND NEUTROPHILS #M 0.9 10^3/ul (0.0-0.6); BAND NEUTROPHILS % (M) 15 % (0-4); ERYTHROBLAST% (NRBC) (M) 1 % (0-0); GIANT THROMBO% (M) 1 % (0-0); LYMPHOCYTES #M 0.4 10^3/ul (0.8-2.9); LYMPHOCYTES % (M) 8 % (15-51); METAMYELOCYTES #M 0.1 10^3/ul (0.0-0.0); METAMYELOCYTES %M 2 % (0-0); MONOCYTE #M 0.4 10^3/ul (0.3-0.9); MONOCYTES % (M) 8 % (0-11); PLATELET ESTIMATE NORMAL; POLYCHROMASIA 1+ (0-0); SEG NEUT #M 4.1 10^3/ul (1.6-7.5); SEGMENTED NEUTROPHILS (M) % 67 % (39-77); SMUDGE%M 4 % (0-0)
[2018-01-11] MEDS: SOD CHLORIDE 0.9% 1,000 ML IV (13:45)
[2018-01-11] MEDS: ACETAMINOPHEN 500 MG TAB PO (14:56)
[2018-01-11 15:22] LABS: ADD UMIC NO; UR ASCORBIC ACID NEGATIVE (NEGATIVE); UR BILIRUBIN (Dip) NEGATIVE (NEGATIVE); UR BLOOD (Dip) NEGATIVE (NEGATIVE); UR CLARITY CLEAR (CLEAR); UR COLOR STRAW (YELLOW); UR GLUCOSE (Dip) NEGATIVE (NEGATIVE); UR KETONES (Dip) NEGATIVE (NEGATIVE); UR LEUKOCYTE ESTERASE (Dip) NEGATIVE Leu/ul (NEGATIVE); UR NITRITE (Dip) NEGATIVE (NEGATIVE); UR SPECIFIC GRAVITY (Dip) 1.001 (1.003-1.030); UR TOTAL PROTEIN (Dip) NEGATIVE (NEGATIVE); UR UROBILINOGEN (Dip) NEGATIVE (NEGATIVE)
[2018-01-11 15:35] LABS: LACTIC ACID 1.6 mmol/L (0.5-2.0)
[2018-01-11 16:04] LABS: IMMEDIATE SPIN CROSSMATCH 1 1
[2018-01-11] MEDS ORDERED: NACL 0.9% 3 ML SYG IV (18:30)
[2018-01-11] MEDS ORDERED: ONDANSETRON 4 MG INJ IV (18:30)
[2018-01-11] MEDS ORDERED: DOCUSATE SODIUM 100 MG CAP PO (18:30)
[2018-01-11] MEDS: FLUOCINONIDE 0.05% 15 GM CR TOP (21:00)
[2018-01-11] MEDS: ACETAMINOPHEN 325 MG TAB PO (22:15)
[2018-01-12] MEDS: PANTOPRAZOLE (EC) 40 MG TAB PO (06:26)
[2018-01-12 07:27] LABS: ADD MAN DIFF? NO
[2018-01-12 07:31] LABS: ABNORMAL IP MESSAGE 1; BASOPHILS % 0.4 % (0.0-2.0); EOSINOPHILS % 0.7 % (0.0-7.0); HEMATOCRIT 24.4 % (42.0-52.0); HEMOGLOBIN 8.1 g/dl (14.0-18.0); LYMPHOCYTES # 0.5 10^3/ul (0.8-2.9); LYMPHOCYTES % 9.6 % (15.0-51.0); MEAN CORPUSCULAR HEMOGLOBIN 31.9 pg (29.0-33.0); MEAN CORPUSCULAR HGB CONC 33.2 g/dl (32.0-37.0); MEAN CORPUSCULAR VOLUME 96.1 fl (82.0-101.0); MEAN PLATELET VOLUME 10.5 fl (7.4-10.4); MONOCYTE # 0.3 10^3/ul (0.3-0.9); MONOCYTES % 5.6 % (0.0-11.0); NEUTROPHIL # 3.8 10^3/ul (1.6-7.5); NEUTROPHILS % 68.5 % (39.0-77.0); PLATELET COUNT 214 10^3/UL (140-415); POSITIVE DIFF @See below; RED BLOOD COUNT 2.54 10^6/ul (4.70-6.10); RED CELL DISTRIBUTION WIDTH 18.1 % (11.5-14.5)
[2018-01-12 07:31] LABS: WHITE BLOOD COUNT 5.5 10^3/ul (4.8-10.8)
[2018-01-12 08:01] LABS: ALANINE AMINOTRANSFERASE 26 IU/L (13-69); ALBUMIN 3.2 g/dl (3.3-4.9); ALBUMIN/GLOBULIN RATIO 1.33; ALKALINE PHOSPHATASE 55 IU/L (42-121); ANION GAP 9 (8-16); ASPARTATE AMINO TRANSFERASE 26 IU/L (15-46); BILIRUBIN,INDIRECT 0.8 mg/dl (0-1.1); BILIRUBIN,TOTAL 0.8 mg/dl (0.2-1.3); BLOOD UREA NITROGEN 10 mg/dl (7-20); CALCIUM 9.1 mg/dl (8.4-10.2); CARBON DIOXIDE 28 mmol/L (21-31); CHLORIDE 106 mmol/L (97-110); CREATININE 0.73 mg/dl (0.61-1.24); GLUCOSE 106 mg/dl (70-220); POTASSIUM 4.2 mmol/L (3.5-5.1); SODIUM 139 mmol/L (135-144); TOTAL PROTEIN 5.6 g/dl (6.1-8.1)
[2018-01-12] MEDS: FOLIC ACID 1 MG TAB PO (08:42)
[2018-01-12] MEDS: CYCLOSPORINE MICROEMULS 100 MG CAP PO ×2 (08:42→21:55)
[2018-01-12] MEDS: FLUOCINONIDE 0.05% 15 GM CR TOP ×2 (08:43→21:55)
[2018-01-12] MEDS: ACETAMINOPHEN 325 MG TAB PO (08:51)
[2018-01-12 09:14] LABS: ANISOCYTOSIS 2+ (0-0); BAND NEUTROPHILS #M 1.5 10^3/ul (0.0-0.6); BAND NEUTROPHILS % (M) 28 % (0-4); LYMPHOCYTES #M 0.7 10^3/ul (0.8-2.9); LYMPHOCYTES % (M) 14 % (15-51); MICROCYTOSIS 1+ (0-0); MONOCYTE #M 0.2 10^3/ul (0.3-0.9); MONOCYTES % (M) 4 % (0-11); PLATELET ESTIMATE NORMAL; POLYCHROMASIA 3+ (0-0); SEG NEUT #M 3.1 10^3/ul (1.6-7.5); SEGMENTED NEUTROPHILS (M) % 54 % (39-77); SMUDGE%M 2 % (0-0)
[2018-01-12] MEDS: GUAIFENESIN/DM 5ML CUP PO (18:42)
[2018-01-12] MEDS: AZITHROMYCIN 250 MG TAB PO (18:42)
[2018-01-12] MEDS: ALBUTEROL/IPRATROPIUM (NEB) 3 ML AMP HHN (21:43)
[2018-01-13] MEDS: HARD FAT/PHENYLEPHRINE SUPP PR (06:09)
[2018-01-13] MEDS: PANTOPRAZOLE (EC) 40 MG TAB PO (06:09)
[2018-01-13 06:54] LABS: WHITE BLOOD COUNT 8.7 10^3/ul (4.8-10.8)
[2018-01-13 06:54] LABS: ABNORMAL IP MESSAGE 1; HEMATOCRIT 25.8 % (42.0-52.0); HEMOGLOBIN 8.6 g/dl (14.0-18.0); MEAN CORPUSCULAR HEMOGLOBIN 31.7 pg (29.0-33.0); MEAN CORPUSCULAR HGB CONC 33.3 g/dl (32.0-37.0); MEAN CORPUSCULAR VOLUME 95.2 fl (82.0-101.0); MEAN PLATELET VOLUME 10.6 fl (7.4-10.4); PLATELET COUNT 246 10^3/UL (140-415); POSITIVE DIFF @See below; RED BLOOD COUNT 2.71 10^6/ul (4.70-6.10); RED CELL DISTRIBUTION WIDTH 18.6 % (11.5-14.5)
[2018-01-13 07:16] LABS: ADD MAN DIFF? YES
[2018-01-13] MEDS: predniSONE 50 MG TAB PO (08:59)
[2018-01-13] MEDS: AZITHROMYCIN 250 MG TAB PO (09:00)
[2018-01-13] MEDS: FOLIC ACID 1 MG TAB PO (09:00)
[2018-01-13] MEDS: CYCLOSPORINE MICROEMULS 100 MG CAP PO (09:00)
[2018-01-13] MEDS: ACETAMINOPHEN 325 MG TAB PO (09:05)
[2018-01-13 09:10] LABS: ANISOCYTOSIS 1+ (0-0); BAND NEUTROPHILS % (M) 24 % (0-4); EOSINOPHILS % (M) 1 % (0-7); GIANT THROMBO% (M) 2 % (0-0); LYMPHOCYTES #M 0.8 10^3/ul (0.8-2.9); LYMPHOCYTES % (M) 10 % (15-51); METAMYELOCYTES %M 1 % (0-0); MONOCYTE #M 0.6 10^3/ul (0.3-0.9); MONOCYTES % (M) 7 % (0-11); MYELOCYTES #M 0.1 10^3/ul (0.0-0.0); MYELOCYTES % (M) 2 % (0-0); PLATELET ESTIMATE NORMAL; POLYCHROMASIA 1+ (0-0); REACTIVE LYMPHOCYTES #M 0.4 10^3/ul (0.0-0.0); REACTIVE LYMPHOCYTES% (M) 5 % (0-0); SEG NEUT #M 4.5 10^3/ul (1.6-7.5); SEGMENTED NEUTROPHILS (M) % 50 % (39-77); SMUDGE%M 1 % (0-0)
[2018-01-13] MEDS: FLUOCINONIDE 0.05% 15 GM CR TOP (09:10)
[2018-01-13] MEDS: ALBUTEROL/IPRATROPIUM (NEB) 3 ML AMP HHN ×4 (09:36→21:46)
[2018-01-13 17:13] LABS: TRANSFERRIN 172 mg/dL (188-341)
[2018-01-14] MEDS: FLUOCINONIDE 0.05% 15 GM CR TOP ×3 (00:50→22:01)
[2018-01-14] MEDS: CYCLOSPORINE MICROEMULS 100 MG CAP PO ×3 (00:50→21:59)
[2018-01-14] MEDS: ACETAMINOPHEN 325 MG TAB PO ×4 (00:58→22:02)
[2018-01-14] MEDS: PANTOPRAZOLE (EC) 40 MG TAB PO (05:37)
[2018-01-14 06:06] LABS: WHITE BLOOD COUNT 5.5 10^3/ul (4.8-10.8)
[2018-01-14 06:06] LABS: ABNORMAL IP MESSAGE 1; HEMATOCRIT 22.3 % (42.0-52.0); HEMOGLOBIN 7.4 g/dl (14.0-18.0); MEAN CORPUSCULAR HEMOGLOBIN 31.8 pg (29.0-33.0); MEAN CORPUSCULAR HGB CONC 33.2 g/dl (32.0-37.0); MEAN CORPUSCULAR VOLUME 95.7 fl (82.0-101.0); MEAN PLATELET VOLUME 10.4 fl (7.4-10.4); PLATELET COUNT 195 10^3/UL (140-415); POSITIVE DIFF @See below; RED BLOOD COUNT 2.33 10^6/ul (4.70-6.10); RED CELL DISTRIBUTION WIDTH 18.9 % (11.5-14.5)
[2018-01-14 06:11] LABS: ADD MAN DIFF? YES
[2018-01-14 07:28] LABS: ANISOCYTOSIS 2+ (0-0); BAND NEUTROPHILS #M 1.6 10^3/ul (0.0-0.6); BAND NEUTROPHILS % (M) 30 % (0-4); GIANT THROMBO% (M) 1 % (0-0); LYMPHOCYTES #M 0.9 10^3/ul (0.8-2.9); LYMPHOCYTES % (M) 17 % (15-51); MICROCYTOSIS 1+ (0-0); MONOCYTE #M 0.1 10^3/ul (0.3-0.9); MONOCYTES % (M) 3 % (0-11); PLATELET ESTIMATE NORMAL; POLYCHROMASIA 2+ (0-0); SEG NEUT #M 2.8 10^3/ul (1.6-7.5); SEGMENTED NEUTROPHILS (M) % 50 % (39-77); SMUDGE%M 2 % (0-0)
[2018-01-14] MEDS: ALBUTEROL/IPRATROPIUM (NEB) 3 ML AMP HHN ×4 (07:56→20:19)
[2018-01-14] MEDS: predniSONE 20 MG TAB PO (09:01)
[2018-01-14] MEDS: AZITHROMYCIN 250 MG TAB PO (09:01)
[2018-01-14] MEDS: FOLIC ACID 1 MG TAB PO (09:02)
[2018-01-14] MEDS: HARD FAT/PHENYLEPHRINE SUPP PR ×2 (11:09→22:01)
[2018-01-14 15:29] LABS: RAPID PLASMA REAGIN NONREACTIVE (NR)
[2018-01-14] MEDS: LORAZEPAM 2 MG INJ IV (17:38)
[2018-01-14] MEDS ORDERED: IMMUNE GLOBULIN IV (18:00)
[2018-01-14] MEDS ORDERED: WATER STERILE FOR IV (18:00)
[2018-01-14] MEDS: DEXTROSE 5% IV (19:04)
[2018-01-14] MEDS: IMMUN GLOB IV (19:04)
[2018-01-15] MEDS: PANTOPRAZOLE (EC) 40 MG TAB PO (05:35)
[2018-01-15] MEDS: ACETAMINOPHEN 325 MG TAB PO ×2 (05:35→11:43)
[2018-01-15] MEDS: CYCLOSPORINE MICROEMULS 100 MG CAP PO ×2 (08:42→20:06)
[2018-01-15] MEDS: predniSONE 20 MG TAB PO (08:43)
[2018-01-15] MEDS: FOLIC ACID 1 MG TAB PO (08:43)
[2018-01-15] MEDS: AZITHROMYCIN 250 MG TAB PO (08:43)
[2018-01-15] MEDS: FLUOCINONIDE 0.05% 15 GM CR TOP (08:43)
[2018-01-15] MEDS: ALBUTEROL/IPRATROPIUM (NEB) 3 ML AMP HHN ×5 (09:00→20:29)
[2018-01-15] MEDS ORDERED: IMMUNE GLOBULIN (HUMAN) 6 GM INJ IV (09:00)
[2018-01-15] MEDS: HARD FAT/PHENYLEPHRINE SUPP PR (11:46)
[2018-01-15] MEDS: CEFTRIAXONE 1 GM/50 ML (PMX) 50 ML IVPB (15:06)
[2018-01-15] MEDS: DEXTROSE 5% IV (17:45)
[2018-01-15] MEDS: IMMUN GLOB IV (17:45)
[2018-01-15] MEDS: NYSTATIN SUSP 5 ML CUP PO (20:06)
[2018-01-15] MEDS: NEOMYC/POLYMYX/BACIT 30 GM OINT TOP (20:06)
[2018-01-16] MEDS: HYDROCODONE/APAP (5/325) TAB PO ×2 (00:09→09:20)
[2018-01-16] MEDS: PANTOPRAZOLE (EC) 40 MG TAB PO (05:42)
[2018-01-16 06:04] LABS: WHITE BLOOD COUNT 2.3 10^3/ul (4.8-10.8)
[2018-01-16 06:04] LABS: ABNORMAL IP MESSAGE 1; HEMATOCRIT 20.1 % (42.0-52.0); MEAN CORPUSCULAR HEMOGLOBIN 31.6 pg (29.0-33.0); MEAN CORPUSCULAR HGB CONC 32.3 g/dl (32.0-37.0); MEAN CORPUSCULAR VOLUME 97.6 fl (82.0-101.0); MEAN PLATELET VOLUME 10.3 fl (7.4-10.4); PLATELET COUNT 159 10^3/UL (140-415); POSITIVE DIFF @See below; RED BLOOD COUNT 2.06 10^6/ul (4.70-6.10); RED CELL DISTRIBUTION WIDTH 19.6 % (11.5-14.5)
[2018-01-16 06:18] LABS: ADD MAN DIFF? YES; HEMOGLOBIN 6.5 g/dl (14.0-18.0)
[2018-01-16 06:30] LABS: ALANINE AMINOTRANSFERASE 24 IU/L (13-69); ALBUMIN 2.9 g/dl (3.3-4.9); ALBUMIN/GLOBULIN RATIO 0.78; ALKALINE PHOSPHATASE 50 IU/L (42-121); ANION GAP 10 (8-16); ASPARTATE AMINO TRANSFERASE 20 IU/L (15-46); BILIRUBIN,INDIRECT 0.5 mg/dl (0-1.1); BILIRUBIN,TOTAL 0.5 mg/dl (0.2-1.3); BLOOD UREA NITROGEN 13 mg/dl (7-20); CALCIUM 8.8 mg/dl (8.4-10.2); CARBON DIOXIDE 27 mmol/L (21-31); CHLORIDE 106 mmol/L (97-110); CREATININE 0.77 mg/dl (0.61-1.24); GLUCOSE 93 mg/dl (70-220); POTASSIUM 4.1 mmol/L (3.5-5.1); SODIUM 139 mmol/L (135-144); TOTAL PROTEIN 6.6 g/dl (6.1-8.1)
[2018-01-16 07:45] LABS: ANISOCYTOSIS 1+ (0-0); BAND NEUTROPHILS #M 0.7 10^3/ul (0.0-0.6); BAND NEUTROPHILS % (M) 31 % (0-4); BASOPHILS % (M) 2 % (0-2); EOSINOPHILS % (M) 1 % (0-7); ERYTHROBLAST% (NRBC) (M) 1 % (0-0); GIANT THROMBO% (M) 1 % (0-0); LYMPHOCYTES #M 0.5 10^3/ul (0.8-2.9); LYMPHOCYTES % (M) 24 % (15-51); MONOCYTE #M 0.1 10^3/ul (0.3-0.9); MONOCYTES % (M) 8 % (0-11); MYELOCYTES % (M) 1 % (0-0); PLATELET ESTIMATE NORMAL; POLYCHROMASIA 1+ (0-0); SEG NEUT #M 0.8 10^3/ul (1.6-7.5); SEGMENTED NEUTROPHILS (M) % 33 % (39-77); SMUDGE%M 4 % (0-0)
[2018-01-16] MEDS: ALBUTEROL/IPRATROPIUM (NEB) 3 ML AMP HHN ×4 (08:20→21:25)
[2018-01-16] MEDS: AZITHROMYCIN 250 MG TAB PO (09:15)
[2018-01-16] MEDS: predniSONE 20 MG TAB PO (09:15)
[2018-01-16] MEDS: FOLIC ACID 1 MG TAB PO (09:15)
[2018-01-16] MEDS: HARD FAT/PHENYLEPHRINE SUPP PR (09:15)
[2018-01-16] MEDS: NYSTATIN SUSP 5 ML CUP PO ×3 (09:15→21:01)
[2018-01-16] MEDS: NEOMYC/POLYMYX/BACIT 30 GM OINT TOP ×2 (09:16→11:50)
[2018-01-16] MEDS: CYCLOSPORINE MICROEMULS 100 MG CAP PO ×2 (09:16→21:01)
[2018-01-16 10:11] LABS: IMMEDIATE SPIN CROSSMATCH 1 1
[2018-01-16] MEDS: FUROSEMIDE 40 MG TAB PO (11:50)
[2018-01-16] MEDS: CEFTRIAXONE 1 GM/50 ML (PMX) 50 ML IVPB (16:00)
[2018-01-16] MEDS: MUPIROCIN 2% 22 GM OINT TOP ×2 (17:00→21:01)
[2018-01-16] MEDS: DOXYCYCLINE 100 MG TAB PO ×2 (17:19→21:01)
[2018-01-16] MEDS: IMMUN GLOB IV (17:21)
[2018-01-16] MEDS: DEXTROSE 5% IV (17:21)
[2018-01-16] MEDS: MAGNESIUM HYDROXIDE 30ML CUP PO (21:08)
[2018-01-16] MEDS: ACETAMINOPHEN 325 MG TAB PO (22:50)
[2018-01-17] MEDS: PANTOPRAZOLE (EC) 40 MG TAB PO (05:46)
[2018-01-17 06:18] LABS: WHITE BLOOD COUNT 2.9 10^3/ul (4.8-10.8)
[2018-01-17 06:18] LABS: ABNORMAL IP MESSAGE 1; HEMATOCRIT 26.9 % (42.0-52.0); HEMOGLOBIN 8.7 g/dl (14.0-18.0); MEAN CORPUSCULAR HEMOGLOBIN 30.7 pg (29.0-33.0); MEAN CORPUSCULAR HGB CONC 32.3 g/dl (32.0-37.0); MEAN CORPUSCULAR VOLUME 95.1 fl (82.0-101.0); MEAN PLATELET VOLUME 10.4 fl (7.4-10.4); PLATELET COUNT 177 10^3/UL (140-415); POSITIVE DIFF @See below; RED BLOOD COUNT 2.83 10^6/ul (4.70-6.10); RED CELL DISTRIBUTION WIDTH 20.3 % (11.5-14.5)
[2018-01-17 06:43] LABS: ANION GAP 13 (8-16); BLOOD UREA NITROGEN 14 mg/dl (7-20); CALCIUM 9.2 mg/dl (8.4-10.2); CARBON DIOXIDE 27 mmol/L (21-31); CHLORIDE 103 mmol/L (97-110); CREATININE 0.81 mg/dl (0.61-1.24); GLUCOSE 124 mg/dl (70-220); POTASSIUM 4.3 mmol/L (3.5-5.1); SODIUM 139 mmol/L (135-144)
[2018-01-17 06:47] LABS: B-TYPE NATRIURETIC PEPTIDE 337 PG/ML (0-125)
[2018-01-17 07:03] LABS: ADD MAN DIFF? YES
[2018-01-17] MEDS: CYCLOSPORINE MICROEMULS 100 MG CAP PO ×2 (08:39→21:36)
[2018-01-17] MEDS: NYSTATIN SUSP 5 ML CUP PO ×3 (08:39→21:40)
[2018-01-17] MEDS: FOLIC ACID 1 MG TAB PO (08:39)
[2018-01-17] MEDS: predniSONE 20 MG TAB PO (08:39)
[2018-01-17] MEDS: DOXYCYCLINE 100 MG TAB PO ×2 (08:39→21:40)
[2018-01-17] MEDS: FUROSEMIDE 40 MG TAB PO (08:40)
[2018-01-17] MEDS: MUPIROCIN 2% 22 GM OINT TOP ×2 (08:40→21:41)
[2018-01-17] MEDS: ACETAMINOPHEN 325 MG TAB PO (08:44)
[2018-01-17 09:10] LABS: ANISOCYTOSIS 1+ (0-0); BAND NEUTROPHILS #M 0.6 10^3/ul (0.0-0.6); BAND NEUTROPHILS % (M) 24 % (0-4); BASOPHILS % (M) 1 % (0-2); EOSINOPHILS % (M) 1 % (0-7); ERYTHROBLAST% (NRBC) (M) 1 % (0-0); LYMPHOCYTES #M 0.4 10^3/ul (0.8-2.9); LYMPHOCYTES % (M) 14 % (15-51); METAMYELOCYTES #M 0.1 10^3/ul (0.0-0.0); METAMYELOCYTES %M 6 % (0-0); MONOCYTE #M 0.4 10^3/ul (0.3-0.9); MONOCYTES % (M) 14 % (0-11); MYELOCYTES % (M) 3 % (0-0); PLATELET ESTIMATE NORMAL; POLYCHROMASIA 2+ (0-0); REACTIVE LYMPHOCYTES #M 0.1 10^3/ul (0.0-0.0); REACTIVE LYMPHOCYTES% (M) 5 % (0-0); SEG NEUT #M 0.9 10^3/ul (1.6-7.5); SEGMENTED NEUTROPHILS (M) % 31 % (39-77); SMUDGE%M 11 % (0-0)
[2018-01-17] MEDS: ALBUTEROL/IPRATROPIUM (NEB) 3 ML AMP HHN ×4 (10:00→22:20)
[2018-01-17] MEDS: CEFTRIAXONE 1 GM/50 ML (PMX) 50 ML IVPB (14:07)
[2018-01-17] MEDS: DEXTROSE 5% IV (16:57)
[2018-01-17] MEDS: IMMUN GLOB IV (16:57)
[2018-01-17 18:07] LABS: CYCLOSPORIN 500 mcg/L
[2018-01-17 18:34] LABS: AADO2 Arterial 30.8 mmHg (7.0-24.0); Allen Test ACCEPTAB; Arterial Base Excess 2.5 mmol/L (-3.0-3); Arterial Blood Gas Oxygen Sat 96.5 mmHG (95.0-98.0); Arterial COHb 0.1 % (0.0-3.0); Arterial Fraction of Oxyhgb 96.1 % (93.0-99.0); Arterial HCO3 25.5 mmol/L (22.0-26.0); Arterial MetHb 0.3 % (0.0-1.5); Arterial Total Hemglobin 9.6 g/dl (12.0-18.0); Arterial pCO2 33.4 mmhg (35-45); MODE ROOM AIR; Site Left Radial
[2018-01-17] MEDS: HYDROCODONE/APAP (5/325) TAB PO (21:41)
[2018-01-18] MEDS: PANTOPRAZOLE (EC) 40 MG TAB PO (06:08)
[2018-01-18] MEDS: FOLIC ACID 1 MG TAB PO (08:40)
[2018-01-18] MEDS: NYSTATIN SUSP 5 ML CUP PO ×2 (08:40→13:11)
[2018-01-18] MEDS: CYCLOSPORINE MICROEMULS 100 MG CAP PO (08:40)
[2018-01-18] MEDS: ACETAMINOPHEN 325 MG TAB PO ×2 (08:40→15:27)
[2018-01-18] MEDS: predniSONE 20 MG TAB PO (08:40)
[2018-01-18] MEDS: DOXYCYCLINE 100 MG TAB PO (08:41)
[2018-01-18] MEDS: FUROSEMIDE 40 MG TAB PO (08:41)
[2018-01-18] MEDS: MUPIROCIN 2% 22 GM OINT TOP (08:42)
[2018-01-18] MEDS: ALBUTEROL/IPRATROPIUM (NEB) 3 ML AMP HHN ×3 (08:56→17:16)
[2018-01-18] MEDS: CEFTRIAXONE 1 GM/50 ML (PMX) 50 ML IVPB (14:22)
[2018-01-18] MEDS: DEXTROSE 5% IV (15:26)
[2018-01-18] MEDS: IMMUN GLOB IV (15:26)
== END 2018-01-18 20:58 | disposition home or self-care (01) | DRG 809 ==
LOC: E/R 11:55 → PP2 01-13 20:55 → MS4 20:55
PROC: 30233N1 Transfusion of Nonautologous Red Blood Cells into Peripheral Vein, Percutaneous Approach (ICD-10-PCS; 2018-01-11)
PROC: 30233N1 Transfusion of Nonautologous Red Blood Cells into Peripheral Vein, Percutaneous Approach (ICD-10-PCS; principal; 2018-01-16)
DX: D61.01 Constitutional (pure) red blood cell aplasia (principal); B37.0 Candidal stomatitis; B48.8 Other specified mycoses; J20.9 Acute bronchitis, unspecified; K29.70 Gastritis, unspecified, without bleeding; E66.9 Obesity, unspecified; Z68.29 Body mass index [BMI] 29.0-29.9, adult
CPT/HCPCS: 36415; 36430; 36600; 71045; 74182; 80048; 80053; 80158; 81003; 82728; 82803; 83540; 83605; 83615; 83880; 84466; 85025; 86592; 86694; 86850; 86900; 86901; 86920; 87040; 87070; 87086; 87591; 93306; 93971; 94640; 94664; 99285-25

== ENCOUNTER 2018-08-01 18:43 | Inpatient (IN) | payer OTHER ==
[2018-08-01] MEDS: ACETAMINOPHEN 325 MG TAB PO (22:54)
[2018-08-01] MEDS: CEFTRIAXONE 1 GM/50 ML (PMX) 50 ML IVPB (22:55)
[2018-08-01] MEDS: SODIUM CHLORIDE 0.9% 1L BAG IV* (22:55)
[2018-08-01 23:04] LABS: ADD MAN DIFF? NO
[2018-08-01 23:08] LABS: WHITE BLOOD COUNT 8.7 10^3/ul (4.8-10.8)
[2018-08-01 23:08] LABS: BASOPHIL # 0.1 10^3/ul (0.0-0.1); BASOPHILS % 0.8 % (0.0-2.0); EOSINOPHILS # 0.3 10^3/ul (0.0-0.5); EOSINOPHILS % 3.2 % (0.0-7.0); LYMPHOCYTES % 11.3 % (15.0-51.0); MEAN CORPUSCULAR HEMOGLOBIN 37.2 pg (29.0-33.0); MEAN CORPUSCULAR HGB CONC 35.1 g/dl (32.0-37.0); MEAN PLATELET VOLUME 9.9 fl (7.4-10.4); MONOCYTE # 0.9 10^3/ul (0.3-0.9); MONOCYTES % 10.3 % (0.0-11.0); NEUTROPHIL # 6.4 10^3/ul (1.6-7.5); NEUTROPHILS % 73.6 % (39.0-77.0); PLATELET COUNT 154 10^3/UL (140-415); RED BLOOD COUNT 3.49 10^6/ul (4.70-6.10); RED CELL DISTRIBUTION WIDTH 13.4 % (11.5-14.5)
[2018-08-01 23:22] LABS: ANION GAP 12 (5-13); BLOOD UREA NITROGEN 24 mg/dl (7-20); CALCIUM 9.5 mg/dl (8.4-10.2); CARBON DIOXIDE 24 mmol/L (21-31); CHLORIDE 105 mmol/L (97-110); CREATININE 1.21 mg/dl (0.61-1.24); Estimated GFR > 60 mL/min (>60); GLUCOSE 132 mg/dl (70-220); POTASSIUM 4.5 mmol/L (3.5-5.1); SODIUM 141 mmol/L (135-144)
[2018-08-01 23:28] LABS: INR 1.11; PROTIME 14.4 Sec (11.9-14.9); PT RATIO 1.1
[2018-08-01 23:29] LABS: PARTIAL THROMBOPLASTIN TIME 40.2 Sec (23.0-35.0)
[2018-08-01 23:34] LABS: TROPONIN-I < 0.012 ng/ml (0.000-0.120)
[2018-08-02] MEDS ORDERED: ONDANSETRON 4 MG INJ IV (01:30)
[2018-08-02] MEDS ORDERED: ACETAMINOPHEN 325 MG TAB PO (01:30)
[2018-08-02 02:00] LABS: ADD UMIC NO; UR ASCORBIC ACID NEGATIVE (NEGATIVE); UR BILIRUBIN (Dip) NEGATIVE (NEGATIVE); UR BLOOD (Dip) NEGATIVE (NEGATIVE); UR CLARITY CLEAR (CLEAR); UR COLOR YELLOW (YELLOW); UR GLUCOSE (Dip) NEGATIVE (NEGATIVE); UR KETONES (Dip) NEGATIVE (NEGATIVE); UR LEUKOCYTE ESTERASE (Dip) NEGATIVE Leu/ul (NEGATIVE); UR NITRITE (Dip) NEGATIVE (NEGATIVE); UR SPECIFIC GRAVITY (Dip) 1.012 (1.003-1.030); UR TOTAL PROTEIN (Dip) NEGATIVE (NEGATIVE); UR UROBILINOGEN (Dip) NEGATIVE (NEGATIVE)
[2018-08-02] MEDS ORDERED: morphine SULFATE/PF (2 MG/2 ML) SYG IV (04:30)
[2018-08-02] MEDS: PANTOPRAZOLE 40 MG INJ IV (05:05)
[2018-08-02] MEDS: SOD CHLORIDE 0.9% 1,000 ML IV ×3 (05:20→19:17)
[2018-08-02 06:07] LABS: ADD MAN DIFF? NO
[2018-08-02 06:20] LABS: BASOPHILS % 0.5 % (0.0-2.0); EOSINOPHILS # 0.3 10^3/ul (0.0-0.5); EOSINOPHILS % 4.8 % (0.0-7.0); HEMATOCRIT 32.5 % (42.0-52.0); HEMOGLOBIN 11.2 g/dl (14.0-18.0); LYMPHOCYTES # 0.8 10^3/ul (0.8-2.9); LYMPHOCYTES % 12.9 % (15.0-51.0); MEAN CORPUSCULAR HEMOGLOBIN 37.2 pg (29.0-33.0); MEAN CORPUSCULAR HGB CONC 34.5 g/dl (32.0-37.0); MEAN PLATELET VOLUME 10.1 fl (7.4-10.4); MONOCYTE # 0.7 10^3/ul (0.3-0.9); MONOCYTES % 10.6 % (0.0-11.0); NEUTROPHIL # 4.5 10^3/ul (1.6-7.5); NEUTROPHILS % 69.8 % (39.0-77.0); PLATELET COUNT 140 10^3/UL (140-415); RED BLOOD COUNT 3.01 10^6/ul (4.70-6.10); RED CELL DISTRIBUTION WIDTH 13.3 % (11.5-14.5)
[2018-08-02 06:20] LABS: WHITE BLOOD COUNT 6.4 10^3/ul (4.8-10.8)
[2018-08-02 06:33] LABS: ALANINE AMINOTRANSFERASE 17 IU/L (13-69); ALBUMIN 3.5 g/dl (3.3-4.9); ALKALINE PHOSPHATASE 90 IU/L (42-121); ANION GAP 10 (5-13); ASPARTATE AMINO TRANSFERASE 29 IU/L (15-46); BILIRUBIN,INDIRECT 0.1 mg/dl (0-1.1); BILIRUBIN,TOTAL 0.1 mg/dl (0.2-1.3); BLOOD UREA NITROGEN 18 mg/dl (7-20); CARBON DIOXIDE 22 mmol/L (21-31); CHLORIDE 110 mmol/L (97-110); CREATININE 1.02 mg/dl (0.61-1.24); Estimated GFR > 60 mL/min (>60); GLUCOSE 105 mg/dl (70-220); POTASSIUM 4.4 mmol/L (3.5-5.1); SODIUM 142 mmol/L (135-144)
[2018-08-02] MEDS: FOLIC ACID 1 MG TAB PO (08:18)
[2018-08-02] MEDS: CYCLOSPORINE MICROEMULS 100 MG CAP PO (08:18)
[2018-08-02] MEDS: ACYCLOVIR 400 MG TAB PO (08:19)
[2018-08-02] MEDS: ACETAMINOPHEN 325 MG TAB PO ×2 (08:23→14:19)
[2018-08-02] MEDS ORDERED: CYCLOSPORINE MICROEMULS 100 MG CAP PO (09:00)
[2018-08-02] MEDS: CEFTRIAXONE 1 GM/50 ML (PMX) 50 ML IVPB (23:10)
[2018-08-03] MEDS: ACETAMINOPHEN 325 MG TAB PO ×3 (02:39→15:00)
[2018-08-03 05:30] LABS: ADD MAN DIFF? NO
[2018-08-03 05:36] LABS: BASOPHILS % 0.6 % (0.0-2.0); EOSINOPHILS # 0.2 10^3/ul (0.0-0.5); EOSINOPHILS % 2.9 % (0.0-7.0); HEMATOCRIT 32.2 % (42.0-52.0); HEMOGLOBIN 11.2 g/dl (14.0-18.0); LYMPHOCYTES # 0.8 10^3/ul (0.8-2.9); LYMPHOCYTES % 11.6 % (15.0-51.0); MEAN CORPUSCULAR HEMOGLOBIN 37.2 pg (29.0-33.0); MEAN CORPUSCULAR HGB CONC 34.8 g/dl (32.0-37.0); MEAN PLATELET VOLUME 10.2 fl (7.4-10.4); MONOCYTE # 0.6 10^3/ul (0.3-0.9); MONOCYTES % 9.6 % (0.0-11.0); NEUTROPHIL # 4.8 10^3/ul (1.6-7.5); NEUTROPHILS % 73.9 % (39.0-77.0); PLATELET COUNT 135 10^3/UL (140-415); RED BLOOD COUNT 3.01 10^6/ul (4.70-6.10); RED CELL DISTRIBUTION WIDTH 13.3 % (11.5-14.5)
[2018-08-03 05:36] LABS: WHITE BLOOD COUNT 6.5 10^3/ul (4.8-10.8)
[2018-08-03 06:15] LABS: ALANINE AMINOTRANSFERASE 21 IU/L (13-69); ALBUMIN 3.8 g/dl (3.3-4.9); ALBUMIN/GLOBULIN RATIO 1.35; ALKALINE PHOSPHATASE 97 IU/L (42-121); ANION GAP 10 (5-13); ASPARTATE AMINO TRANSFERASE 29 IU/L (15-46); BILIRUBIN,INDIRECT 0.1 mg/dl (0-1.1); BILIRUBIN,TOTAL 0.1 mg/dl (0.2-1.3); BLOOD UREA NITROGEN 16 mg/dl (7-20); CALCIUM 9.1 mg/dl (8.4-10.2); CARBON DIOXIDE 26 mmol/L (21-31); CHLORIDE 105 mmol/L (97-110); CREATININE 1.11 mg/dl (0.61-1.24); Estimated GFR > 60 mL/min (>60); GLUCOSE 118 mg/dl (70-220); POTASSIUM 4.4 mmol/L (3.5-5.1); SODIUM 141 mmol/L (135-144); TOTAL PROTEIN 6.6 g/dl (6.1-8.1)
[2018-08-03] MEDS: PANTOPRAZOLE 40 MG INJ IV (06:19)
[2018-08-03] MEDS: DEFERASIROX 1080 MG PO (06:19)
[2018-08-03] MEDS: FOLIC ACID 1 MG TAB PO (08:58)
[2018-08-03] MEDS: ACYCLOVIR 400 MG TAB PO (08:58)
[2018-08-03] MEDS: CYCLOSPORINE MICROEMULS 100 MG CAP PO (08:58)
[2018-08-03] MEDS: SOD CHLORIDE 0.9% 1,000 ML IV ×2 (09:02→23:24)
[2018-08-03] MEDS: SOD CHLORIDE 0.9% 500 ML IV (09:31)
[2018-08-03] MEDS ORDERED: VANCOMYCIN IV PER PHARMACY XX (10:30)
[2018-08-03] MEDS: CEFEPIME 1GM/50 ML (PMX) 50 ML IVPB ×2 (11:27→21:00)
[2018-08-03] MEDS: VANCOMYCIN 2 GM in SOD CHLORIDE 0.9% 500 ML IVPB (12:45)
[2018-08-04] MEDS: VANCOMYCIN 1.25 GM in SOD CHLORIDE 0.9% 250 ML IVPB ×3 (00:10→23:53)
[2018-08-04] MEDS: ACETAMINOPHEN 325 MG TAB PO ×3 (00:12→18:23)
[2018-08-04] MEDS: DEFERASIROX 1080 MG PO (05:57)
[2018-08-04] MEDS: PANTOPRAZOLE 40 MG INJ IV (05:58)
[2018-08-04 06:27] LABS: ADD MAN DIFF? NO
[2018-08-04 06:29] LABS: WHITE BLOOD COUNT 6.2 10^3/ul (4.8-10.8)
[2018-08-04 06:29] LABS: BASOPHILS % 0.6 % (0.0-2.0); EOSINOPHILS # 0.2 10^3/ul (0.0-0.5); EOSINOPHILS % 3.5 % (0.0-7.0); HEMOGLOBIN 11.8 g/dl (14.0-18.0); LYMPHOCYTES # 1.4 10^3/ul (0.8-2.9); LYMPHOCYTES % 22.7 % (15.0-51.0); MEAN CORPUSCULAR HEMOGLOBIN 37.3 pg (29.0-33.0); MEAN CORPUSCULAR HGB CONC 34.7 g/dl (32.0-37.0); MEAN CORPUSCULAR VOLUME 107.6 fl (82.0-101.0); MEAN PLATELET VOLUME 9.9 fl (7.4-10.4); MONOCYTE # 0.6 10^3/ul (0.3-0.9); MONOCYTES % 9.8 % (0.0-11.0); NEUTROPHIL # 3.9 10^3/ul (1.6-7.5); NEUTROPHILS % 62.9 % (39.0-77.0); PLATELET COUNT 137 10^3/UL (140-415); RED BLOOD COUNT 3.16 10^6/ul (4.70-6.10); RED CELL DISTRIBUTION WIDTH 13.3 % (11.5-14.5)
[2018-08-04 06:50] LABS: ANION GAP 12 (5-13); BLOOD UREA NITROGEN 14 mg/dl (7-20); CALCIUM 9.4 mg/dl (8.4-10.2); CARBON DIOXIDE 27 mmol/L (21-31); CHLORIDE 105 mmol/L (97-110); CREATININE 1.05 mg/dl (0.61-1.24); Estimated GFR > 60 mL/min (>60); GLUCOSE 100 mg/dl (70-220); POTASSIUM 4.3 mmol/L (3.5-5.1); SODIUM 144 mmol/L (135-144)
[2018-08-04 06:51] LABS: MAGNESIUM 1.9 mg/dl (1.7-2.5)
[2018-08-04] MEDS: CEFEPIME 1GM/50 ML (PMX) 50 ML IVPB ×2 (09:21→21:54)
[2018-08-04] MEDS: CYCLOSPORINE MICROEMULS 100 MG CAP PO (09:21)
[2018-08-04] MEDS: SOD CHLORIDE 0.9% 1,000 ML IV (09:21)
[2018-08-04] MEDS: ACYCLOVIR 400 MG TAB PO (09:21)
[2018-08-04] MEDS: FOLIC ACID 1 MG TAB PO (09:22)
[2018-08-04] MEDS: GUAIFENESIN/DM 5ML CUP PO ×2 (18:23→23:53)
[2018-08-04] MEDS ORDERED: morphine LIQ (10 MG/5 ML) CUP PO (23:30)
[2018-08-04 23:35] LABS: VANCOMYCIN,TROUGH 16.3 ug/ml (10.0-20.0)
[2018-08-05] MEDS: SOD CHLORIDE 0.9% 1,000 ML IV ×2 (04:00→06:31)
[2018-08-05] MEDS: PANTOPRAZOLE 40 MG INJ IV (05:20)
[2018-08-05] MEDS: GUAIFENESIN/DM 5ML CUP PO ×2 (05:20→23:06)
[2018-08-05 05:41] LABS: ADD MAN DIFF? NO
[2018-08-05 05:44] LABS: BASOPHILS % 0.3 % (0.0-2.0); EOSINOPHILS # 0.4 10^3/ul (0.0-0.5); EOSINOPHILS % 6.5 % (0.0-7.0); HEMATOCRIT 34.7 % (42.0-52.0); HEMOGLOBIN 12.1 g/dl (14.0-18.0); LYMPHOCYTES # 1.3 10^3/ul (0.8-2.9); LYMPHOCYTES % 20.6 % (15.0-51.0); MEAN CORPUSCULAR HEMOGLOBIN 37.2 pg (29.0-33.0); MEAN CORPUSCULAR HGB CONC 34.9 g/dl (32.0-37.0); MEAN CORPUSCULAR VOLUME 106.8 fl (82.0-101.0); MEAN PLATELET VOLUME 9.9 fl (7.4-10.4); MONOCYTE # 0.6 10^3/ul (0.3-0.9); MONOCYTES % 9.5 % (0.0-11.0); NEUTROPHIL # 3.9 10^3/ul (1.6-7.5); NEUTROPHILS % 62.3 % (39.0-77.0); PLATELET COUNT 143 10^3/UL (140-415); RED BLOOD COUNT 3.25 10^6/ul (4.70-6.10); RED CELL DISTRIBUTION WIDTH 13.4 % (11.5-14.5)
[2018-08-05 05:44] LABS: WHITE BLOOD COUNT 6.2 10^3/ul (4.8-10.8)
[2018-08-05 06:16] LABS: PHOSPHORUS 2.7 mg/dl (2.5-4.9)
[2018-08-05 06:27] LABS: ANION GAP 7 (5-13); BLOOD UREA NITROGEN 14 mg/dl (7-20); CALCIUM 9.5 mg/dl (8.4-10.2); CARBON DIOXIDE 24 mmol/L (21-31); CHLORIDE 109 mmol/L (97-110); CREATININE 1.12 mg/dl (0.61-1.24); Estimated GFR > 60 mL/min (>60); GLUCOSE 122 mg/dl (70-220); POTASSIUM 4.2 mmol/L (3.5-5.1); SODIUM 140 mmol/L (135-144)
[2018-08-05] MEDS: DEFERASIROX 1080 MG PO (06:31)
[2018-08-05] MEDS: FOLIC ACID 1 MG TAB PO (08:55)
[2018-08-05] MEDS: ACYCLOVIR 400 MG TAB PO (08:55)
[2018-08-05] MEDS: CYCLOSPORINE MICROEMULS 100 MG CAP PO (08:56)
[2018-08-05] MEDS: CEFEPIME 1GM/50 ML (PMX) 50 ML IVPB (08:56)
[2018-08-05] MEDS ORDERED: VANCOMYCIN 1 GM 250 ML IVPB (12:00)
[2018-08-06] MEDS: DEFERASIROX 1080 MG PO (05:34)
[2018-08-06] MEDS: PANTOPRAZOLE 40 MG INJ IV (05:34)
[2018-08-06] MEDS: GUAIFENESIN/DM 5ML CUP PO (06:26)
[2018-08-06] MEDS: CYCLOSPORINE MICROEMULS 100 MG CAP PO (09:13)
[2018-08-06] MEDS: FOLIC ACID 1 MG TAB PO (09:13)
[2018-08-06] MEDS: ACYCLOVIR 400 MG TAB PO (09:13)
[2018-08-07] MEDS ORDERED: LEVOFLOXACIN 500 MG TAB PO (06:00)
== END 2018-08-06 12:15 | disposition home or self-care (01) | DRG 202 ==
LOC: E/R 18:43 → 2NE 08-02 01:07
PROVIDERS: Internal Medicine Nephrology
DX: J40 Bronchitis, not specified as acute or chronic (principal); D61.01 Constitutional (pure) red blood cell aplasia; R65.10 Systemic inflammatory response syndrome (SIRS) of non-infectious origin without acute organ dysfunction
CPT/HCPCS: 36415; 71045; 80048; 80053; 80202; 81003; 83605; 83735; 84100; 84484; 85025; 85610; 85730; 86850; 86900; 86901; 87040; 87086; 87400; 93005; 96374; 99291-25

== ENCOUNTER 2018-11-18 11:13 | Observation (INO) | payer OTHER ==
[2018-11-18 12:24] LABS: ADD MAN DIFF? NO
[2018-11-18 12:28] LABS: WHITE BLOOD COUNT 6.4 10^3/ul (4.8-10.8)
[2018-11-18 12:28] LABS: ABNORMAL IP MESSAGE 1; BASOPHILS % 0.6 % (0.0-2.0); EOSINOPHILS % 0.5 % (0.0-7.0); HEMATOCRIT 38.7 % (42.0-52.0); HEMOGLOBIN 13.8 g/dl (14.0-18.0); LYMPHOCYTES # 1.6 10^3/ul (0.8-2.9); MEAN CORPUSCULAR HEMOGLOBIN 36.3 pg (29.0-33.0); MEAN CORPUSCULAR HGB CONC 35.7 g/dl (32.0-37.0); MEAN CORPUSCULAR VOLUME 101.8 fl (82.0-101.0); MEAN PLATELET VOLUME 9.8 fl (7.4-10.4); MONOCYTE # 0.6 10^3/ul (0.3-0.9); NEUTROPHIL # 3.7 10^3/ul (1.6-7.5); NEUTROPHILS % 57.5 % (39.0-77.0); PLATELET COUNT 154 10^3/UL (140-415); POSITIVE DIFF @See below; RED CELL DISTRIBUTION WIDTH 12.6 % (11.5-14.5)
[2018-11-18 12:45] LABS: ALANINE AMINOTRANSFERASE 23 IU/L (13-69); ALBUMIN 4.6 g/dl (3.3-4.9); ALBUMIN/GLOBULIN RATIO 1.76; ALKALINE PHOSPHATASE 105 IU/L (42-121); ANION GAP 9 (5-13); ASPARTATE AMINO TRANSFERASE 28 IU/L (15-46); BILIRUBIN,INDIRECT 0.8 mg/dl (0-1.1); BILIRUBIN,TOTAL 0.8 mg/dl (0.2-1.3); BLOOD UREA NITROGEN 19 mg/dl (7-20); CALCIUM 9.7 mg/dl (8.4-10.2); CARBON DIOXIDE 23 mmol/L (21-31); CHLORIDE 108 mmol/L (97-110); CREATININE 0.93 mg/dl (0.61-1.24); Estimated GFR > 60 mL/min (>60); GLUCOSE 97 mg/dl (70-220); POTASSIUM 4.5 mmol/L (3.5-5.1); SODIUM 140 mmol/L (135-144); TOTAL PROTEIN 7.2 g/dl (6.1-8.1)
[2018-11-18 12:55] LABS: TROPONIN-I < 0.012 ng/ml (0.000-0.120)
[2018-11-18] MEDS: SOD CHLORIDE 0.9% 100 ML (14:17)
[2018-11-18] MEDS: IOHEXOL 100 ML (14:18)
[2018-11-18] MEDS ORDERED: ONDANSETRON 4 MG INJ IV (15:00)
[2018-11-18 18:31] LABS: CREATINE KINASE 56 IU/L (23-200)
[2018-11-18 18:44] LABS: CK INDEX 0.7; CK-MB 0.37 ng/ml (0.0-2.4); TROPONIN-I < 0.012 ng/ml (0.000-0.120)
[2018-11-18] MEDS: ACETAMINOPHEN 325 MG TAB PO (22:54)
[2018-11-19 01:08] LABS: CREATINE KINASE 49 IU/L (23-200)
[2018-11-19 01:21] LABS: CK INDEX 0.9; CK-MB 0.45 ng/ml (0.0-2.4); TROPONIN-I < 0.012 ng/ml (0.000-0.120)
[2018-11-19] MEDS ORDERED: ONDANSETRON 4 MG INJ IV (03:00)
[2018-11-19 05:39] LABS: ADD MAN DIFF? NO
[2018-11-19 05:45] LABS: ABNORMAL IP MESSAGE 1; BASOPHILS % 0.5 % (0.0-2.0); EOSINOPHILS # 0.1 10^3/ul (0.0-0.5); HEMATOCRIT 38.5 % (42.0-52.0); HEMOGLOBIN 13.6 g/dl (14.0-18.0); LYMPHOCYTES # 1.3 10^3/ul (0.8-2.9); MEAN CORPUSCULAR HEMOGLOBIN 36.2 pg (29.0-33.0); MEAN CORPUSCULAR HGB CONC 35.3 g/dl (32.0-37.0); MEAN CORPUSCULAR VOLUME 102.4 fl (82.0-101.0); MEAN PLATELET VOLUME 10.2 fl (7.4-10.4); MONOCYTE # 0.7 10^3/ul (0.3-0.9); MONOCYTES % 11.1 % (0.0-11.0); NEUTROPHIL # 3.4 10^3/ul (1.6-7.5); NEUTROPHILS % 56.2 % (39.0-77.0); PLATELET COUNT 143 10^3/UL (140-415); POSITIVE DIFF @See below; RED BLOOD COUNT 3.76 10^6/ul (4.70-6.10); RED CELL DISTRIBUTION WIDTH 12.6 % (11.5-14.5)
[2018-11-19 05:45] LABS: WHITE BLOOD COUNT 6.1 10^3/ul (4.8-10.8)
[2018-11-19 06:33] LABS: ALANINE AMINOTRANSFERASE 26 IU/L (13-69); ALBUMIN 4.2 g/dl (3.3-4.9); ALBUMIN/GLOBULIN RATIO 1.75; ALKALINE PHOSPHATASE 85 IU/L (42-121); ANION GAP 8 (5-13); ASPARTATE AMINO TRANSFERASE 28 IU/L (15-46); BILIRUBIN,INDIRECT 0.6 mg/dl (0-1.1); BILIRUBIN,TOTAL 0.6 mg/dl (0.2-1.3); BLOOD UREA NITROGEN 20 mg/dl (7-20); CALCIUM 9.7 mg/dl (8.4-10.2); CARBON DIOXIDE 26 mmol/L (21-31); CHLORIDE 107 mmol/L (97-110); CHOL/HDL RATIO 7.3 RATIO; CHOLESTEROL 198 mg/dl (100-200); CREATININE 0.99 mg/dl (0.61-1.24); Estimated GFR > 60 mL/min (>60); GLUCOSE 99 mg/dl (70-220); HDL CHOLESTEROL 27 mg/dl (30-78); LDL CHOLESTEROL,CALCULATED 105 mg/dl; POTASSIUM 4.6 mmol/L (3.5-5.1); SODIUM 141 mmol/L (135-144); TOTAL PROTEIN 6.6 g/dl (6.1-8.1); TRIGLYCERIDES 328 mg/dl (0-149)
[2018-11-19 06:50] LABS: THYROID STIMULATING HORMONE 0.624 MIU/L (0.465-4.680)
[2018-11-19 07:15] LABS: ANISOCYTOSIS 1+ (0-0); BAND NEUTROPHILS #M 0.1 10^3/ul (0.0-0.6); BAND NEUTROPHILS % (M) 3 % (0-4); EOSINOPHILS % (M) 2 % (0-7); LYMPHOCYTES #M 1.5 10^3/ul (0.8-2.9); LYMPHOCYTES % (M) 25 % (15-51); MICROCYTOSIS 1+ (0-0); MONOCYTE #M 0.9 10^3/ul (0.3-0.9); MONOCYTES % (M) 15 % (0-11); PLATELET ESTIMATE NORMAL; SEG NEUT #M 3.4 10^3/ul (1.6-7.5); SEGMENTED NEUTROPHILS (M) % 55 % (39-77); SMUDGE%M 17 % (0-0)
[2018-11-19] MEDS: ACYCLOVIR 400 MG TAB PO (08:03)
[2018-11-19] MEDS: FOLIC ACID 1 MG TAB PO (08:03)
[2018-11-19 08:30] LABS: HEMOGLOBIN A1C 5.1 % (0-5.9)
[2018-11-19] MEDS: CYCLOSPORINE MICROEMULS 100 MG CAP PO (12:03)
[2018-11-19] MEDS ORDERED: NITROGLYCERIN (SL) 0.4 MG TAB SL (13:00)
[2018-11-19] MEDS: ACETAMINOPHEN 500 MG TAB PO (13:57)
[2018-11-19 19:07] LABS: TROPONIN-I < 0.012 ng/ml (0.000-0.120)
[2018-11-20 01:26] LABS: TROPONIN-I < 0.012 ng/ml (0.000-0.120)
[2018-11-20] MEDS: CYCLOSPORINE MICROEMULS 100 MG CAP PO (07:49)
[2018-11-20] MEDS: FOLIC ACID 1 MG TAB PO (07:49)
[2018-11-20] MEDS: ACYCLOVIR 400 MG TAB PO (07:50)
[2018-11-20] MEDS: REGADENOSON 0.4 MG/5 ML SYG (11:50)
[2018-11-20] MEDS ORDERED: NIACIN 100 MG TAB PO (13:30)
[2018-11-20] MEDS: DICLOFENAC SODIUM 1% GEL 100 GM TUBE TP (15:07)
[2018-11-20] MEDS: NIACIN 50 MG TAB PO (15:07)
[2018-11-21] MEDS ORDERED: PANTOPRAZOLE (EC) 40 MG TAB PO (06:00)
== END 2018-11-20 16:04 | disposition home or self-care (01) ==
LOC: E/R 11:13 → 6WM 14:39
DX: M25.512 Pain in left shoulder (principal); R07.9 Chest pain, unspecified; E78.5 Hyperlipidemia, unspecified; R94.31 Abnormal electrocardiogram [ECG] [EKG]; Z87.891 Personal history of nicotine dependence
CPT/HCPCS: 71045; 71275; 78452; 80053; 80061; 82550; 82553; 83036; 84443; 84484; 85025; 93005; 93017; 93306; 99285-25; G0378

== ENCOUNTER 2019-03-10 12:05 | Emergency (ER) | payer OTHER ==
[2019-03-10 12:50] LABS: WHITE BLOOD COUNT 3.8 10^3/ul (4.8-10.8)
[2019-03-10 12:50] LABS: ABNORMAL IP MESSAGE 1; HEMATOCRIT 19.1 % (42.0-52.0); MEAN CORPUSCULAR HEMOGLOBIN 36.8 pg (29.0-33.0); MEAN CORPUSCULAR HGB CONC 35.6 g/dl (32.0-37.0); MEAN CORPUSCULAR VOLUME 103.2 fl (82.0-101.0); MEAN PLATELET VOLUME 10.5 fl (7.4-10.4); PLATELET COUNT 152 10^3/UL (140-415); POSITIVE DIFF @See below; RED BLOOD COUNT 1.85 10^6/ul (4.70-6.10); RED CELL DISTRIBUTION WIDTH 13.2 % (11.5-14.5)
[2019-03-10 13:08] LABS: ALANINE AMINOTRANSFERASE 27 IU/L (13-69); ALBUMIN 4.1 g/dl (3.3-4.9); ALBUMIN/GLOBULIN RATIO 1.64; ALKALINE PHOSPHATASE 82 IU/L (42-121); ANION GAP 7 (5-13); ASPARTATE AMINO TRANSFERASE 18 IU/L (15-46); BILIRUBIN,INDIRECT 0.7 mg/dl (0-1.1); BILIRUBIN,TOTAL 0.7 mg/dl (0.2-1.3); BLOOD UREA NITROGEN 18 mg/dl (7-20); CALCIUM 9.1 mg/dl (8.4-10.2); CARBON DIOXIDE 27 mmol/L (21-31); CHLORIDE 104 mmol/L (97-110); CREATININE 0.95 mg/dl (0.61-1.24); Estimated GFR > 60 mL/min (>60); GLUCOSE 136 mg/dl (70-220); POTASSIUM 4.2 mmol/L (3.5-5.1); SODIUM 138 mmol/L (135-144); TOTAL PROTEIN 6.6 g/dl (6.1-8.1)
[2019-03-10 13:13] LABS: INR 1.02; PROTIME 13.5 Sec (11.9-14.9); PT RATIO 1.1
[2019-03-10 13:14] LABS: PARTIAL THROMBOPLASTIN TIME 34.6 Sec (23.0-35.0)
[2019-03-10 13:47] LABS: ADD MAN DIFF? YES; HEMOGLOBIN 6.8 g/dl (14.0-18.0)
[2019-03-10] MEDS: SOD CHLORIDE 0.9% 0 ML IV (13:47)
[2019-03-10 14:39] LABS: IMMEDIATE SPIN CROSSMATCH 1 2
[2019-03-10 14:41] LABS: ANISOCYTOSIS 1+ (0-0); BAND NEUTROPHILS % (M) 1 % (0-4); HYPOCHROMASIA 1+ (0-0); LYMPHOCYTES #M 1.2 10^3/ul (0.8-2.9); LYMPHOCYTES % (M) 32 % (15-51); MICROCYTOSIS 1+ (0-0); MONOCYTE #M 0.2 10^3/ul (0.3-0.9); MONOCYTES % (M) 6 % (0-11); PLATELET ESTIMATE NORMAL; SEG NEUT #M 2.3 10^3/ul (1.6-7.5); SEGMENTED NEUTROPHILS (M) % 61 % (39-77); SMUDGE%M 6 % (0-0)
== END 2019-03-10 17:13 | disposition home or self-care (01) ==
LOC: E/R 12:05
PROVIDERS: Pediatrics
DX: D64.9 Anemia, unspecified (principal); R06.02 Shortness of breath
CPT/HCPCS: 36415; 36430; 80053; 85025; 85610; 85730; 86850; 86900; 86901; 86920; 99285-25